=== PATIENT | female | born 1950 | race Caucasian/White ===

== ENCOUNTER 2019-05-16 00:51 | Day surgery (SDC) | payer MEDICARE, SELFPAY ==
[2019-05-09 15:50] VITALS: BMI 30.4
[2019-05-16] MEDS: LACTATED RINGERS 1,000 ML 150 ML IV CONT (07:35)
--- NOTE | 2019-05-16 07:57 | WPDANESEPPF ---
Anes - Initial Pre Proc Eval Procedure: Operation Date: 05/16/19 08:00 Proposed Procedures p Screening Colonoscopy - Rome Jonas MD Date/Time: 05/16/19 07:57 Surgeon: Rome Jonas MD Pre Op Diagnosis: Hx Colon Polyps Patient Data Age: 68 Gender: F Height: 5 ft 3 in Weight: 77.4 kg Allergies Allergy/AdvReac Type Severity Reaction Status Date / Time oxycodone Allergy Mild Rash Verified 05/16/19 07:11 Home Medications Medication Instructions Recorded Confirmed Type estradiol 0.5 mg PO DAILY 05/09/19 05/09/19 History hydrochlorothiazide 25 mg PO DAILY 05/09/19 05/16/19 History lisinopril 10 mg PO DAILY 05/09/19 05/09/19 History melatonin 3 mg PO HS PRN 05/09/19 05/09/19 History metoprolol succinate 50 mg PO DAILY 05/09/19 05/09/19 History Patient hx anesthesia problems: none Family hx anesthesia problems: none [facility] Past Medical History Medical History (Updated 05/16/19 @ 07:56 by Gilmar Richardson MD) Chronic lymphocytic leukemia dx 2010; now in remission Hypertension Anes - Eval Final PreProcedure Day of Procedure 05/16/19 07:57 Patient weight: normal Heart: regular rate and rhythm Lungs: clear to auscultation Airway: Mallampati scale class II Neurological: alert and oriented Last oral intake: >/= 8 hours ASA classification: II Emergent: no Anesthetic plan: proceed Anesthesia type and monitoring: general GIVS and standard monitoring Informed Consent: The patient's anesthetic plan and its attendant risks and benefits were discussed with the patient/family/POA. Questions were solicited and answers provided to the satisfaction of the patient/family/POA.
--- NOTE | 2019-05-16 08:15 | WPDGICN ---
Assessment and Plan Additional Plan This is a 68-year-old white female patient seen in evaluation at the request of Dr. Real. Patient presents for screening colonoscopy. Family history is significant her father, brother, maternal grandfather all of had colon cancer. Patient states that her current weight appetite are normal. She has had some diarrhea after medication given for skin disease. She denies any blood in her stools. Past medical history is significant for CLL. Hypertension. Current medications include estradiol, hydrochlorothiazide, lisinopril, melatonin, and metoprolol. \ She is allergic to oxycodone. Physical exam reveals her to be alert. Vital signs stable. HEENT exam unremarkable. She is anicteric. Lungs are clear to auscultation and percussion. Heart is without murmur or extra sounds. Abdominal exam bowel sounds are present soft nontender with no hepatosplenomegaly. Digital external rectal exam is normal. Impression 1. Family history of colon cancer. 2. Diarrhea. Appears related to recent medication. Plan is for colonoscopy now and at least every 5 years in the future. GI Consult Note Consult date/time: 05/16/19 08:15 HPI: Elena Tobar is a 68 year old female [facility] Past Medical History Medical History (Updated 05/16/19 @ 07:56 by Gilmar Richardson MD) Chronic lymphocytic leukemia dx 2010; now in remission Hypertension Meds Home Medications and Allergies Home Medications Medication Instructions Recorded Confirmed Type estradiol 0.5 mg PO DAILY 05/09/19 05/09/19 History hydrochlorothiazide 25 mg PO DAILY 05/09/19 05/16/19 History lisinopril 10 mg PO DAILY 05/09/19 05/09/19 History melatonin 3 mg PO HS PRN 05/09/19 05/09/19 History metoprolol succinate 50 mg PO DAILY 05/09/19 05/09/19 History Allergies Allergy/AdvReac Type Severity Reaction Status Date / Time oxycodone Allergy Mild Rash Verified 05/16/19 07:11
[2019-05-16 08:18] VITALS: BP 108/67; PULSE 78; RESP 16; O2SAT 98
[2019-05-16 08:28] VITALS: BP 108/65; PULSE 72; RESP 20; O2SAT 99
[2019-05-16 08:38] VITALS: BP 113/67; PULSE 64; RESP 13; O2SAT 99
== END 2019-05-16 08:54 | disposition home or self-care (01) ==
PROVIDERS: PCP Family Medicine Adolescent Medicine; Visit Provider Internal Medicine Gastroenterology
PROC: 0DJD8ZZ Inspection of Lower Intestinal Tract, Via Natural or Artificial Opening Endoscopic (ICD-10-PCS; CPT 45378; principal; 2019-05-16 08:00)
DX: Z12.11 Encounter for screening for malignant neoplasm of colon (principal); R19.7 Diarrhea, unspecified; D12.4 Benign neoplasm of descending colon; K64.8 Other hemorrhoids; I10 Essential (primary) hypertension; C91.11 Chronic lymphocytic leukemia of B-cell type in remission
CPT/HCPCS: 45385; 88305; J2704; J7120

== ENCOUNTER → 2019-09-30 09:00 | Outpatient (CLI) | payer MEDICARE, SELFPAY ==
--- NOTE | ~2019-09-30 | MR_ITS ---
EXAMINATION: MR hip RT wo con DATE: 09/30/2019 10:13 INDICATION: Bilateral primary osteoarthritis of the right hip presenting with right hip/groin pain TECHNIQUE: Magnetic resonance imaging (MRI) of the right hip was performed without intravenous contr ast. Sequences included full-field axial PD-weighted FS FSE and T1-weighted FSE, coronal of the pelvi s with PD-weighted FS FSE, small field of view of the right hip with axial PD-weighted FS FSE, sagit urszula PD-weighted FS FSE and coronal PD weighted FS FSE. Additional radial T1-weighted FGR oriented ort hogonal to the acetabular rim were obtained for evaluation of the labrum. COMPARISON: Radiographs dated 09/22/2019 FINDINGS: Bones/labrum/cartilage: Alignment is normal. No fracture, avascular necrosis or pathologic marrow replacing process. Mild de generation with amorphous increased intrasubstance signal at the anterosuperior right acetabular labr um. Small posterolateral right os acetabulum. More severe degenerative tearing suggested but not diag nostically evaluated along the anterolateral anterosuperior to posterior superior left acetabular lab rum on the larger field of view images of the pelvis. Mild right hip osteoarthritis with mild partial thickness cartilage loss with smooth chondral surface there is minimal subarticular edema along the posterior superior rim of the left acetabulum likely related to overlying chondromalacia severe disc height loss at L5-S1. Otherwise mild spondylosis of the visualized more cephalad lumbar spine. Fluid: Symmetric physiologic amount of fluid within both hip joints. Soft tissues: Normal and symmetric muscle bulk and signal in the pelvis and visualized proximal thighs. Mild bilate ral gluteus medius bursitis and mild tendinopathy without discrete tear of the distal gluteus medius tendons on both the left and right. Bilateral gluteus minimus tendons are normal. Mild tendinopathy w ithout discrete tear at the lesser trochanteric insertions of the bilateral iliopsoas tendons. Bilate ral minimal ischial bursitis with mild tendinopathy without discrete tear at the ischial tuberosity o rigins of the proximal hamstring tendons, right greater than left. Limited evaluation of visceral org ans of the pelvis is unremarkable. No pathologically enlarged pelvic/inguinal lymphadenopathy. IMPRESSION: 1. Mild right hip osteoarthritis with mild degeneration at the anterosuperior labrum. 2. More severe degenerative tearing of the left acetabular labrum suggested but not diagnostically ev aluated on the larger field of view images. 3. Relatively symmetric bilateral mild bilateral gluteus medius bursitis and mild gluteus medius tend inopathy without discrete tears. 4. Minimal bilateral ischial bursitis with mild tendinopathy without discrete tears at the ischial tu berosity origins of the bilateral proximal hamstring tendons, right greater than left. 5. Relatively symmetric mild tendinopathy without discrete tears at the lesser trochanteric insertion s of the bilateral iliopsoas tendons. 6. Lumbar spondylosis with severe disc height loss at L5-S1. Reviewed, dictated and finalized at location A. IMPRESSION: 1. Mild right hip osteoarthritis with mild degeneration at the anterosuperior l abrum. 2. More severe degenerative tearing of the left acetabular labrum suggested but not diagnostically evaluated on the larger field of view images. 3. Relatively symmetric bilateral mild bilateral gluteus medius bursitis and mi ld gluteus medius tendinopathy without discrete tears. 4. Minimal bilateral ischial bursitis with mild tendinopathy without discrete t ears at the ischial tuberosity origins of the bilateral proximal hamstring tend ons, right greater than left. 5. Relatively symmetric mild tendi
== END ==
PROVIDERS: PCP Family Medicine Adolescent Medicine; Visit Provider Nurse Practitioner Family
DX: M16.11 Unilateral primary osteoarthritis, right hip (principal); S73.191A Other sprain of right hip, initial encounter; M71.551 Other bursitis, not elsewhere classified, right hip; M47.816 Spondylosis without myelopathy or radiculopathy, lumbar region; R29.890 Loss of height
CPT/HCPCS: 73721

== ENCOUNTER 2019-11-19 15:12 | Inpatient (IN) | payer MEDICARE, SELFPAY ==
[2019-11-19] VITALS (10 sets, daily range): BP systolic 127–140; BP diastolic 62–78; PULSE 69–84; RESP 10–18; TEMP 36.1–36.6; O2SAT 97–100
--- NOTE | ~2019-11-19 | CT_ITS ---
EXAMINATION: CT brain wo con DATE: 11/19/2019 15:53 INDICATION: Syncope TECHNIQUE: Computed tomography (CT) of the head was performed without intravenous contrast. The mA wa s adjusted according to patient size. Iterative reconstruction technique was employed. Exam dose: 60 5.33 mGy-cm total exam DLP. COMPARISON: None FINDINGS: No intracranial mass lesion or hemorrhage or cerebrovascular accident, midline shift or mas s effect. No subdural or epidural hematoma. Normal ventricular size. Orbital contents are unremarkable. No fracture or bone destruction of the cranial vault. The mastoid air cells and included paranasal sinuses are unremarkable. IMPRESSION: No significant abnormality Reviewed, dictated and finalized at Location A. Reviewed, dictated and finalized at location A. IMPRESSION: No significant abnormality
--- NOTE | ~2019-11-19 | US_ITS ---
EXAMINATION: US carotid duplex BI DATE: 11/20/2019 09:16 INDICATION: Transient alteration of awareness TECHNIQUE: Grayscale, color Doppler, and pulsed Doppler images of the cervical carotid arteries were obtained. The degree of vessel stenosis is placed in one of the following categories: normal, <50%, 5 0-69%, >=70% but less than near-occlusion, near-occlusion, or total occlusion. Note that percent sten osis relative to normal distal artery lumen diameter is indirectly measured from velocity measurement s as described by Daniel, et al. Radiology 2003; 229:340-346. COMPARISON: None. FINDINGS: RIGHT: The right common carotid artery (CCA) peak systolic velocity (PSV) is 59 cm/s. The right internal car otid artery (ICA) PSV is 73 cm/s. The right ICA end-diastolic velocity (EDV) is 22 cm/s. The right IC A/CCA PSV ratio is 0.8. Grayscale and color Doppler images yield an estimate of less than 50% diamete r reduction from plaque in the ICA. The external carotid artery (ECA) PSV is 96 cm/s. There is antegr david flow in the right vertebral artery. LEFT: The left CCA PSV is 75 cm/s. The left ICA PSV is 122 cm/s. The left ICA EDV is 31 cm/s. The left ICA/ CCA PSV ratio is 1.6. Grayscale and color Doppler images yield an estimate of less than 50% diameter reduction from plaque in the ICA. The ECA PSV is 86 cm/s. There is antegrade flow in the left vertebr al artery. IMPRESSION: 1. <50% stenosis in the right internal carotid artery. 2. <50% stenosis in the left internal carotid artery. Reviewed, dictated and finalized at location A.
--- NOTE | ~2019-11-19 | CT_ITS ---
EXAMINATION: CT abdomen pelvis wo con DATE: 11/21/2019 12:15 INDICATION: Lower abdominal cramping, diarrhea TECHNIQUE: Computed tomography (CT) of the abdomen and pelvis was performed without intravenous contr ast. Automated exposure control and iterative reconstruction technique were employed. Exam dose: 584 .37 mGy-cm total exam DLP. COMPARISON: None. FINDINGS: There is mild discoid atelectasis or scarring in the lingula and both lower lobes, right lo wer lobe greater than left. Normal heart size. No pericardial or pleural effusion. The gallbladder is contracted. No hepatic, splenic, pancreatic, and adrenal space-occupying mass lesi on is evident. No bile duct or pancreatic duct dilatation. 2.5 cm upper pole left renal cyst. Probable exophytic approximately 12 mm lower pole right renal cyst . No other renal space occupying mass lesion is evident. No urinary tract calculus or hydroureteronep hrosis. The urinary bladder is unremarkable. Normal caliber of the abdominal aorta, with atherosclerotic calcification of the aorta and iliac bandar jerome. No intraperitoneal or retroperitoneal or pelvic mass lesion or adenopathy or ascites. Normal appendix. No bowel obstruction, bowel wall thickening, pneumatosis or intraperitoneal free air . Diverticulosis of the sigmoid colon; no CT evidence of diverticulitis. Grade 1 anterolisthesis at L3-4 due to degenerative change at the apophyseal joints. Severe degenerative disc disease at the L5-S1 interspace. No suspicious osteolytic or osteoblastic lesions are noted. IMPRESSION: Renal cysts Normal appendix Diverticulosis of the colon Reviewed, dictated and finalized at Location [facility]. Reviewed, dictated and finalized at location A.
--- NOTE | 2019-11-19 15:17 | ECG_ITS ---
Measurements Intervals [place] Rate: 72 P: 22 MI: 197 QRS: -17 QRSD: 97 T: 22 QT: 401 QTc: 440 Interpretive Statements SINUS RHYTHM ANTERIOR INFARCT, AGE INDETERMINATE INFERIOR INFARCT, AGE INDETERMINATE ABNORMAL ECG Electronically Signed On 11-20-2019 7:47:04 CDT by Pablo Ashford D.O.
[2019-11-19] MEDS: SODIUM CHLORIDE 0.9% IV 1,000 ML 150 ML IV CONT (15:36)
[2019-11-19 15:55] LABS: Basophils Absolute Auto 0.1 K/mm3 (0.0-0.1); Basophils Percent Auto 0.1 % (0.2-1.2); Eosinophils Absolute Auto 0.2 K/mm3 (0-0.3); Eosinophils Percent Auto 0.3 % (0-4.4); Hematocrit 29.3 % (37.0-47.0); Hemoglobin 9.3 g/dL (12.0-15.0); Immature Granulocyte Absolute 0.09 K/mm3 (0.00-0.031); Immature Granulocyte Percent A 0.2 % (0-0.5); Immature Platelet Fraction Pct 3.9 % (0.9-11.2); Lymphocytes Absolute Auto 41.15 K/mm3 (0.9-3.2); Lymphocytes Percent Auto 87.8 % (18.3-44.2); Mean Corpuscular HGB Conc 31.7 g/dl (32-36); Mean Corpuscular Hemoglobin 29.2 pg (26-34); Mean Corpuscular Volume 92.1 fl (80-100); Mean Platelet Volume 10.6 fl (7.4-10.4); Monocytes Absolute Auto 0.3 K/mm3 (0.1-0.6); Monocytes Percent Auto 0.7 % (2.6-8.5); Neutrophils Absolute Auto 5.1 K/mm3 (1.3-6.7); Neutrophils Percent Auto 10.9 % (45.5-73.1); Platelet Count Result 120 k/mm3 (150-375); Red Blood Count 3.18 M/mm3 (4.2-5.4); Red Cell Distribution Width 15.4 % (11.5-14.5); White Blood Count 46.9 K/mm3 (4.5-10.0)
[2019-11-19 16:17] LABS: Albumin Level 2.3 g/dL (3.5-5.1); Alkaline Phosphatase 42 U/L (38-126); Anion Gap 5 mmol/L (8-16); Aspartate Amino Transferase 26 U/L (14-36); Bilirubin,Total 0.2 mg/dL (0.2-1.3); Blood Urea Nitrogen 12 mg/dL (7-17); Calcium 5.7 mg/dL (8.4-10.2); Carbon Dioxide 20 mmol/L (22-30); Chloride 112 mmol/L (98-107); Estimated CRCL calculation 89 ml/min; Estimated Glomerular Filt Rate > 60; Glucose 74 mg/dL (65-105); Potassium 2.7 mmol/L (3.4-5.0); Sodium 137 mmol/L (137-145)
[2019-11-19 16:24] LABS: Troponin I < 0.012 ng/mL (0.000-0.034)
[2019-11-19 16:29] LABS: Add Urine Microscopic? YES; Appearance Urine Clear (Clear); Bilirubin Urine Negative (Negative); Blood Urine Negative (Negative); Color Urine Yellow (Yellow); Glucose Urine UA Negative (Negative); Ketones Urine Negative (Negative); Leukocyte Esterase Ur 1+ LEU/UL (Negative); Mucus Urine Rare /lpf; Nitrate Urine Negative (Negative); Protein Urine Negative (Negative); RBC Urine 0-2 /hpf (0-2); Specific Grav Ur 1.015 (1.001-1.035); Squamous Epithelial Cell Urine Rare /hpf (Few); Urobilinogen Urine Negative mg/dL (<2.0); WBC Urine 0-3 /hpf
[2019-11-19 16:32] LABS: Alanine Aminotransferase 20 U/L (4-35)
[2019-11-19 16:35] LABS: Smudge Cells MANY
--- NOTE | 2019-11-19 17:28 | ED.SYNCOPE ---
HPI - Syncope General Chief Complaint: Syncope Stated Complaint: syncopal Source: patient and family Mode of arrival: EMS Limitations: no limitations History of Present Illness HPI narrative: 68-year-old with a history of hypertension, CLL presently on Flagyl for C. difficile here with complaints of syncopal episode x2 since this afternoon. Patient states that she was at a birthday green party of her grandson, was not feeling well passed out for approximately 3 minutes and on her way home had another episode she denies any chest pain, shortness of breath complains of lower abdominal cramping. She denies any chest pain or palpitation. states that they were less than 10 minutes outside. complaint: almost passed out Prodromal symptoms: lightheaded and nausea/vomiting Witnessed: Yes - by Other () Context: at rest Injuries sustained associated with event: none Current symptoms: back to baseline Related Data Home Medications Medication Instructions Recorded Confirmed estradiol 0.5 mg PO DAILY 05/09/19 09/22/19 hydrochlorothiazide 25 mg PO DAILY 05/09/19 09/22/19 lisinopril 10 mg PO DAILY 05/09/19 09/22/19 melatonin 3 mg PO HS PRN 05/09/19 09/22/19 metoprolol succinate 50 mg PO DAILY 05/09/19 09/22/19 Allergies Allergy/AdvReac Type Severity Reaction Status Date / Time oxycodone Allergy Mild Rash Verified 11/19/19 15:18 Review of Systems Review of Systems: All systems reviewed & are unremarkable except as noted in HPI and below Constitutional: Constitutional: Reports no additional constitutional complaints Eyes: Eyes: Reports no additional eye complaints ENT: Reports system reviewed and no additional complaints, except as documented Cardiovascular: Cardiovascular: Reports no additional cardiovascular complaints Respiratory: Respiratory: Reports no additional respiratory complaints Gastrointestinal: Gastrointestinal: Reports abdominal pain and Reports diarrhea Musculoskeletal: Musculoskeletal: Reports no additional musculoskeletal complaints Neurologic: Reports system reviewed and no additional complaints, except as documented Endocrine: Endocrine: Reports no additional endocrine complaints [facility] Past Medical History Medical History Chronic lymphocytic leukemia dx 2010; now in remission Hip pain Hypertension Labral tear of hip joint Trochanteric bursitis, right hip Surgical History Surgical History History of repair of right rotator cuff Family History Family History Unknown Arthritis Cardiovascular disease Social History Social History Smoking status: Never smoker Alcohol intake: current Drinks per week: 2 Exam Narrative: Exam Narrative: GENERAL: Well-appearing, well-nourished, and in no acute distress. HEAD: Normocephalic, atraumatic. EYES: PERRLA and EOMI. ENT: Nares clear, Mucous membranes moist. NECK: Supple. CHEST: Clear to auscultation. No respiratory distress. HEART: Regular rate and rhythm. No murmur heard. Normal peripheral pulses. ABDOMEN: Soft, mild tenderness in the llq, nondistended, normal active bowel sounds. EXTREMITIES: Normal range of motion. No edema. SKIN: Warm, dry, no rash. NEURO: No focal deficits. Alert and oriented x3. PSYCH: Normal mood and affect. Course Course Emergency Course: Patient remained asymptomatic here in the ER. I discussed lab work with the and the patient was started on IV potassium. Vital Signs Vital signs: Vital Signs Temperature 36.6 C 11/19/19 15:09 Pulse Rate 72 11/19/19 15:09 Respiratory Rate 17 11/19/19 15:09 Pulse Oximetry 98 11/19/19 15:09 Temperature 36.6 C 11/19/19 15:09 Pulse Rate 69 11/19/19 17:33 Respiratory Rate 12 11/19/19 17:33 Blood Pressure 132/73 11/19/19
[2019-11-19] MEDS: MORPHINE SULFATE 2 MG/ML INJ IV PUSH (17:29)
[2019-11-19 18:26] LABS: INR 1.5; Prothrombin Time 17.6 Seconds (11.1-14.7)
--- NOTE | 2019-11-19 19:30 | PM.IMHP ---
H&P: HPI History of Present Illness Date/Time: 11/19/19 19:30 Chief complaint: syncope Narrative: Elena Tobar is a 68-year-old female with chronic lymphocytic leukemia, hypertension, and hyperlipidemia who presented to the emergency department earlier this evening for evaluation after two syncopal episodes. 10 days ago she developed foul smelling diarrhea, at least 3 times per day, which has persisted since the outset. Her mother resides at a local senior care facility and is currently being treated for C diff and the patient was empirically started on Flagyl for such 6 days ago on Thursday as she sees her mother frequently. Today she felt well enough to go to her son's house, as they were having and outdoor birthday alliance party for her granddaughter. Not long prior to arrival she began having pretty severe lower abdominal cramps and began to feel very warm, nauseated, and lightheaded. She then lost consciousness for a few seconds before coming to, followed by an episode of emesis. She was profusely diaphoretic at that time, and had the urge to have a bowel movement upon waking. She told her that they probably need to get home quickly, and on their way to the truck she had another syncopal episode , but did not fall or sustain injuries as family members were nearby to catch her. She denies fever, headache, sinus congestion, rhinorrhea, otalgia, odynophagia, chest pain, pleuritic pain, palpitations, cough, shortness of breath, recent travel, sick contacts, hematemesis, melena, hematochezia, dysuria, and hematuria. Of note, the patient's labs drawn in the emergency department seemed a bit off (hypocalcemia, hypoalbuminemia, low total protein, prolonged coags) and thus I had them redrawn. It does look like they indeed were drawn above the IV the site and were erroneous. It is noted that she received K rider in the emergency department, and a repeat potassium level was 5.0. We will monitor her on telemetry overnight and repeat potassium level in a.m.. Review of Systems Review of Systems: Narrative: Twelve systems were reviewed with pertinent positives and negatives as per HPI. Weight has remained stable. No night sweats. She has chronic cervical lymphadenopathy due to her CLL, and has not noticed a change in size or distribution. She is followed by a senior compliance analyst at [facility], Dr. Gonzalez, but she has not seen him for approximately 1 year. She has a history of anemia prior to her hysterectomy, but to her knowledge her hemoglobin has always been within normal limits. she has been told that she has mild splenomegaly and may have mild thrombocytopenia at baseline. She denies abdominal and epigastric pain. She rarely gets heartburn for which she will take Tums. No lower extremity edema, recent travel, or history of venous thromboembolism. She has chronic pain in her right shoulder, and I believe is to have rotator cuff surgery yet again in the future. She has also recently been having right hip discomfort and is seeing an card services specialist. Except as documented, all other systems were reviewed and are negative. [facility] Past Medical History Medical History (Updated 11/19/19 @ 23:27 by Nyla Pizano PA-C) Chronic lymphocytic leukemia Diagnosed in 2010. She is followed by Dr. Rojas at [facility]. Hypertension Surgical History Surgical History (Updated 11/19/19 @ 19:27 by Nyla Pizano PA-C) History of appendectomy History of colonoscopy (~05/17/19) Per Dr. Jonas, with findings of internal hemorrhoids and a descending colon polyp (tubular adenoma). History of fusion of cervical spine History of hysterectomy History of repair of right rotator cuff History of tonsillectomy Family History Family History Unknown Arthritis Cardiovascular disease Social History Social History (Updated 11/19/19 @ 20:46 by Nyla Pizano PA-C) Social History: Surrogate deci
--- NOTE | 2019-11-19 20:48 | ADMGEN ---
This patient, Elena Tobar, was admitted to Medical Room 245-01 @ 1950 on 11/19/2019. Patient/family oriented to hospital policies and general routines including ID bracelet, bed and alarms, visiting hours, pain management, procedures, bathroom and other care routines, personal items, smoking policy, room service/diet, and visiting hours. Valuables list has been completed. Information on how to activate the Rapid Response Team has been discussed. Patient/Family are encouraged to report perceived risks to care and to ask questions if they do not understand what they are told or what they should do.
[2019-11-19] MEDS: LACTATED RINGERS 1,000 ML 125 ML IV CONT (21:37)
[2019-11-19 22:22] LABS: Basophils Absolute Auto 0.2 K/mm3 (0.0-0.1); Basophils Percent Auto 0.3 % (0.2-1.2); Eosinophils Absolute Auto 0.1 K/mm3 (0-0.3); Eosinophils Percent Auto 0.1 % (0-4.4); Hematocrit 34.8 % (37.0-47.0); Hemoglobin 11.3 g/dL (12.0-15.0); Immature Granulocyte Absolute 0.13 K/mm3 (0.00-0.031); Immature Granulocyte Percent A 0.2 % (0-0.5); Mean Corpuscular HGB Conc 32.5 g/dl (32-36); Mean Corpuscular Hemoglobin 29.6 pg (26-34); Mean Corpuscular Volume 91.1 fl (80-100); Mean Platelet Volume 10.6 fl (7.4-10.4); Monocytes Absolute Auto 0.4 K/mm3 (0.1-0.6); Monocytes Percent Auto 0.8 % (2.6-8.5); Neutrophils Percent Auto 14.6 % (45.5-73.1); Platelet Count Result 141 k/mm3 (150-375); Red Blood Count 3.82 M/mm3 (4.2-5.4); Red Cell Distribution Width 15.5 % (11.5-14.5)
[2019-11-19 22:34] LABS: INR 1.1; Partial Thromboplastin Time 27.6 SECONDS (22.3-36.8)
[2019-11-19 22:35] LABS: Anion Gap 4 mmol/L (8-16); Blood Urea Nitrogen 12 mg/dL (7-17); Calcium 8.3 mg/dL (8.4-10.2); Carbon Dioxide 25 mmol/L (22-30); Chloride 106 mmol/L (98-107); Estimated CRCL calculation 66 ml/min; Estimated Glomerular Filt Rate > 60; Glucose 97 mg/dL (65-105); Magnesium 1.8 mg/dL (1.6-2.3); Sodium 135 mmol/L (137-145)
[2019-11-19 22:40] LABS: White Blood Count 54.9 K/mm3 (4.5-10.0)
[2019-11-19] MEDS: FIDAXOMICIN 200 MG TABLET PO (23:20)
[2019-11-19] MEDS: MORPHINE SULFATE 4 MG/ML INJ 2 MG IV PUSH (23:22)
[2019-11-19 23:36] LABS: Alanine Aminotransferase 28 U/L (4-35); Albumin Level 3.4 g/dL (3.5-5.1); Alkaline Phosphatase 63 U/L (38-126); Aspartate Amino Transferase 35 U/L (14-36); Bilirubin,Total 0.6 mg/dL (0.2-1.3)
[2019-11-20] VITALS (12 sets, daily range): BP systolic 113–132; BP diastolic 60–65; PULSE 61–78; RESP 15–18; TEMP 35.7–36.7; O2SAT 92–99
[2019-11-20] MEDS: LACTATED RINGERS 1,000 ML 125 ML IV CONT (04:56)
[2019-11-20 05:40] LABS: Basophils Absolute Auto 0.1 K/mm3 (0.0-0.1); Basophils Percent Auto 0.1 % (0.2-1.2); Eosinophils Absolute Auto 0.2 K/mm3 (0-0.3); Eosinophils Percent Auto 0.4 % (0-4.4); Hemoglobin 11.3 g/dL (12.0-15.0); Immature Granulocyte Absolute 0.07 K/mm3 (0.00-0.031); Immature Granulocyte Percent A 0.2 % (0-0.5); Lymphocytes Absolute Auto 39.93 K/mm3 (0.9-3.2); Mean Corpuscular HGB Conc 32.3 g/dl (32-36); Mean Corpuscular Volume 89.7 fl (80-100); Mean Platelet Volume 10.6 fl (7.4-10.4); Monocytes Absolute Auto 0.4 K/mm3 (0.1-0.6); Monocytes Percent Auto 0.8 % (2.6-8.5); Neutrophils Absolute Auto 4.8 K/mm3 (1.3-6.7); Neutrophils Percent Auto 10.5 % (45.5-73.1); Platelet Count Result 124 k/mm3 (150-375); Red Cell Distribution Width 15.4 % (11.5-14.5); White Blood Count 45.4 K/mm3 (4.5-10.0)
[2019-11-20 05:54] LABS: Anion Gap 4 mmol/L (8-16); Blood Urea Nitrogen 11 mg/dL (7-17); Calcium 8.5 mg/dL (8.4-10.2); Carbon Dioxide 25 mmol/L (22-30); Chloride 106 mmol/L (98-107); Estimated CRCL calculation 66 ml/min; Estimated Glomerular Filt Rate > 60; Glucose 89 mg/dL (65-105); Magnesium 2.1 mg/dL (1.6-2.3); Sodium 135 mmol/L (137-145)
[2019-11-20 07:31] LABS: Platelet Estimate Decreased (Adequate)
[2019-11-20 07:33] LABS: Smudge Cells PRESENT
[2019-11-20] MEDS: METOPROLOL SUCCINATE EXT REL 50 MG TABCR PO (09:34)
[2019-11-20] MEDS: estradioL 0.5 MG TABLET PO (09:34)
[2019-11-20] MEDS: lisinopriL 10 MG TABLET PO (09:34)
[2019-11-20] MEDS: FIDAXOMICIN 200 MG TABLET PO ×2 (10:32→20:20)
--- NOTE | 2019-11-20 12:41 | PM.IMPN ---
Progress Note: A&P Assessment and Plan (1) Syncope: Qualifiers: Syncope type: unspecified Qualified Code(s): R55 - Syncope and collapse Code(s): R55 - Syncope and collapse Status: Acute Assessment and Plan: Likely vasovagal syncope by history, given recent diarrhea and showing some dehydration on labs. Telemetry shows normal sinus rhythm with a heart rate of 94 beats per minute with no arrhythmia noted or abnormality. Echocardiogram and carotid Dopplers are currently pending She is feeling better after IV fluid hydration today and will discontinue fluids at this time. Continue monitoring patient's symptoms and finishing cardiac workup (2) Diarrhea: Code(s): R19.7 - Diarrhea, unspecified Status: Acute Assessment and Plan: She was exposed to C diff in began having diarrhea over a week ago. Despite taking Flagyl for the past 6 days, she continues to have diarrhea and abdominal pain. Change Flagyl to Dificid, pending C diff testing. She is still having some loose stools today without much improvement. Continue monitoring diarrhea. If C diff testing is negative will consider a CT abdomen pelvis looking for other cause of lower abdominal pain and diarrhea. (3) Hypokalemia: Code(s): E87.6 - Hypokalemia Status: Acute Assessment and Plan: She received a 40 mEq K rider in the emergency department for a potassium of 2.7, however that was likely an erroneous level as detailed in HPI. Repeat potassium level was 5.0. Potassium this morning was normal at 4.0 Will recheck in the morning. (4) Chronic lymphocytic leukemia: Code(s): C91.10 - Chronic lymphocytic leukemia of B-cell type not having achieved remission Status: Acute Assessment and Plan: Patient notes stable lymphadenopathy leukocytosis. To her knowledge she has no history of anemia and currently with mild thrombocytopenia. Continue monitoring and she will need to follow-up with her study abroad coordinator/oncologist upon discharge (5) Hypertension: Code(s): I10 - Essential (primary) hypertension Status: Acute Assessment and Plan: Blood pressures reviewed and they are well controlled. At this time will hold hydrochlorothiazide given hypokalemia and some dehydration. Time Spent With Patient Time with patient: 25 - 35 minutes Subjective Date/time seen: 11/20/19 12:41 Interval history: Data summary 11/20/2019: Patient states she is feeling better today after IV fluids. She is still having some loose stools and lower abdominal cramping. She denies any more episodes of lightheadedness, dizziness, near-syncope or syncope since she has been here. She denies any associated symptoms of chest pain, shortness of breath, palpitations with her episodes of syncope. She is otherwise eating and drinking okay. Denies any fevers, chills, cough, leg swelling, calf pain or any other symptoms at this time. Review of Systems Review of Systems: All systems reviewed & are unremarkable except as noted in HPI and below Exam Narrative: Exam Narrative: General: 68-year-old woman walking from the bathroom back into bed. Appears comfortable. In no acute distress. Skin: No jaundice or cyanosis. Good skin turgor. Neck: Full range of motion. Supple. Respiratory: Lungs are clear to auscultation bilaterally. No bony chest wall tenderness. Cardiovascular: The heart has a regular rate and rhythm without murmur. Lower extremities: No lower extremity edema. Distal pulses are easily palpated. No calf tenderness to palpation. Gastrointestinal: Slight tenderness to lower right and left quadrants with palpation. The abdomen is other
[2019-11-20] MEDS: IBUPROFEN 600 MG TABLET PO (13:14)
[2019-11-20] MEDS: LACTATED RINGERS 1,000 ML 100 ML IV CONT (13:14)
[2019-11-21] VITALS (10 sets, daily range): BP systolic 115–131; BP diastolic 60–75; PULSE 63–81; RESP 14–16; TEMP 36.5–37.1; O2SAT 98–99
[2019-11-21 05:51] LABS: Hematocrit 35.8 % (37.0-47.0); Hemoglobin 11.2 g/dL (12.0-15.0); Mean Corpuscular HGB Conc 31.3 g/dl (32-36); Mean Corpuscular Volume 92.7 fl (80-100); Mean Platelet Volume 10.8 fl (7.4-10.4); Platelet Count Result 128 k/mm3 (150-375); Red Blood Count 3.86 M/mm3 (4.2-5.4); Red Cell Distribution Width 15.9 % (11.5-14.5)
[2019-11-21 06:11] LABS: White Blood Count 51.6 K/mm3 (4.5-10.0)
[2019-11-21 06:15] LABS: Anion Gap 4 mmol/L (8-16); Blood Urea Nitrogen 15 mg/dL (7-17); Calcium 8.4 mg/dL (8.4-10.2); Carbon Dioxide 25 mmol/L (22-30); Chloride 107 mmol/L (98-107); Estimated CRCL calculation 66 ml/min; Estimated Glomerular Filt Rate > 60; Glucose 92 mg/dL (65-105); Potassium 4.2 mmol/L (3.4-5.0); Sodium 136 mmol/L (137-145)
--- NOTE | 2019-11-21 08:53 | WPDGICN ---
Assessment and Plan Assessment and plan (1) Diarrhea: Code(s): R19.7 - Diarrhea, unspecified Status: Acute Assessment and Plan: Patient with diarrhea for approximately 10 days. Suspect this is infectious diarrhea given her history. She typically does not have diarrhea. Endoscopic findings in May were noted to be unremarkable. Plan is for stool cultures a broad-spectrum cultures of at all possible. These may be limited because she has been on antibiotics. Would suggest empiric trial of broad-spectrum antibiotics perhaps Cipro would be prudent. C difficile toxin is reported to be negative. I can find no other culture reports are pending at this time. We will allow patient to try Imodium for control of her diarrhea. Encourage dietary intake. IV fluids have been discontinued this morning. Would increase ambulation as possible. (2) Chronic lymphocytic leukemia: Code(s): C91.10 - Chronic lymphocytic leukemia of B-cell type not having achieved remission Status: Acute GI Consult Note Consult date/time: 11/21/19 08:53 HPI: Elena Tobar is a 68 year old female I am asked to see for diarrhea and abdominal pain. Patient in usual state of health has an underlying history of CLL. Approximately 10 days ago began to have diarrhea stools. She empirically began Flagyl 1 week ago because her mother has C diff. 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 She has not seen her mother for since the panned epic began. Patient states diarrhea began. On Thursday 2 days ago she became what somewhat lightheaded and nearly passed out. She states stools are soft she has about 3 a day. Sometimes with significant urgency and poor control. No bleeding has been noted. She has concomitant abdominal cramping. Patient denies any recent travel. No one else in the family has been ill. She hasd eaten no unusual food. Colonoscopy in May for screening was essentially unremarkable. Since admission stool for C difficile toxin has been documented to be negative. Patient reports she has had no bowel movements since yesterday and feels quite improved today after IV fluid rehydration. At the time of admission had electrolyte imbalance was felt to be dehydrated. Review of Systems Review of Systems: All systems reviewed & are unremarkable except as noted in HPI and below PMFSH Past Medical History Medical History Chronic lymphocytic leukemia Diagnosed in 2010. She is followed by Dr. Rojas at [facility]. Hypertension Surgical History Surgical History History of appendectomy History of colonoscopy (~05/17/19) Per Dr. Jonas, with findings of internal hemorrhoids and a descending colon polyp (tubular adenoma). History of fusion of cervical spine History of hysterectomy History of repair of right rotator cuff History of tonsillectomy Family History Family History Unknown Arthritis Cardiovascular disease Social History Social History Social History: Surrogate decision maker: Marc Tobar, . Code status: Full code. Smoking status: Never smoker Alcohol intake: current Drinks per week: 1 Substance use: never Substance use type: does not use Additional living arrangements comments: Lives in [place] with her . Additional occupation/education comments: Retired from working at a dental office. Spiritual care concerns: No Meds Home Medications and Allergies Home Medications Medication Instructions Recorded Confirmed Type estradiol 0.5 mg PO DAILY 05/09/19 11/19/19 History hydrochlorothiazide 25 mg PO DAILY 05/09/19 11/19/19 History lisinopril 10 mg PO DAILY 05/09/19 11/19/19 History metopro
[2019-11-21] MEDS: METOPROLOL SUCCINATE EXT REL 50 MG TABCR PO (09:04)
[2019-11-21] MEDS: estradioL 0.5 MG TABLET PO (09:05)
[2019-11-21] MEDS: lisinopriL 10 MG TABLET PO (09:05)
--- NOTE | 2019-11-21 13:15 | PM.IMPN ---
Progress Note: A&P Assessment and Plan (1) Syncope: Qualifiers: Syncope type: unspecified Qualified Code(s): R55 - Syncope and collapse Code(s): R55 - Syncope and collapse Status: Acute Assessment and Plan: Likely vasovagal syncope by history, given recent diarrhea and showing some dehydration on labs. Telemetry shows normal sinus rhythm with a heart rate of 76 beats per minute, and there was 1 alarms which showed a pause of 2.09 seconds with no arrhythmia noted or abnormality. I informed the patient that if she has pauses greater than 3 seconds this could cause syncopal episodes. I am still under the impression that her syncope was secondary to underlying vasovagal response. Carotid Doppler shows less than 50% stenosis bilaterally. Echocardiogram still pending cardiology interpretation Continue monitoring patient's symptoms and finishing cardiac workup (2) Diarrhea: Code(s): R19.7 - Diarrhea, unspecified Status: Acute Assessment and Plan: She was exposed to C diff and began having diarrhea over a week ago. Despite taking Flagyl for the past 6 days, she continues to have diarrhea and abdominal pain. Change Flagyl to Dificid on arrival but her C diff stool culture was negative. She is still having some loose stools today in states there is some improvement since yesterday afternoon. I consulted Dr. tevin GILL who would like further stool culture testing to be completed because it could be infectious in origin. He also recommended starting ciprofloxacin but since she is improving today he told me over the phone we can hold off on this right now. She does not have a CT scan upon arrival and she is still having some abdominal discomfort and diarrhea so a CT abdomen pelvis was ordered and pending radiologist's interpretation Will continue monitoring her symptoms, pending stool cultures. Continue monitoring diarrhea. (3) Hypokalemia: Code(s): E87.6 - Hypokalemia Status: Acute Assessment and Plan: She received a 40 mEq K rider in the emergency department for a potassium of 2.7, however that was likely an erroneous level as detailed in HPI. Repeat potassium level was 5.0. Potassium this morning was normal at 4.2, stable. Will recheck in the morning. (4) Chronic lymphocytic leukemia: Code(s): C91.10 - Chronic lymphocytic leukemia of B-cell type not having achieved remission Status: Acute Assessment and Plan: Patient notes stable lymphadenopathy leukocytosis. To her knowledge she has no history of anemia and currently with mild thrombocytopenia. Continue monitoring and she will need to follow-up with her latin teacher/oncologist upon discharge (5) Hypertension: Code(s): I10 - Essential (primary) hypertension Status: Acute Assessment and Plan: Blood pressures reviewed and they are well controlled. At this time will hold hydrochlorothiazide given hypokalemia and some dehydration. Time Spent With Patient Time with patient: 25 - 35 minutes Subjective Date/time seen: 11/21/19 13:15 Interval history: Data summary 11/21/2019: Patient states she is feeling better today and she states that her diarrhea has improved. It is loose in nature but she has not had a bowel movement yet this morning, and yesterday afternoon she only had small amounts with the same consistency. She still having some lower abdominal cramping and discomfort. She denies any more episodes of lightheadedness, dizziness, palpitations, near-syncope or syncope since she has been here. She denies any associated symptoms of chest pain, shortness of breath, palpitations with her episodes of syncope.
[2019-11-21] MEDS: IBUPROFEN 600 MG TABLET PO (20:30)
--- NOTE | 2019-11-21 23:29 | ECHO_ITS ---
Patient Info Name: Elena Tobar Age: 68 years : 1950 Gender: Female Ht: 63 in Wt: 174 lbs BSA: 1.90 m2 HR: 70 bpm BP: 121 / 75 mmHg Heart Rhythm: Sinus Rhythm Technical Quality: Good Exam Date: 11/21/2019 11:48 AM Exam Location: [facility] Patient Status: Inpatient Admit Date: 11/19/2019 Staff Ordering Physician: Nyla Pizano PA-C Hub Cutter: Bethel Eldridge RDCS Attending Provider: Mariely Lebron PA-C Referring Physician: Harinder PATRICK; Exam Type: CA echo doppler color flow Study Info Indications R55 - Syncope and collapse Complete two-dimensional, color flow and Doppler transthoracic echocardiogram is performed. History/Risk Factors Syncope. Summary 1. Complete two-dimensional, color flow and Doppler transthoracic echocardiogram is performed. 2. Left ventricular chamber dimension is normal. 3. Left ventricular systolic function is normal, estimated at 65-70%. 4. There is mildly increased left ventricular wall thickness. 5. Left ventricular septal wall motion is normal. 6. The left ventricular diastolic function is grade I diastolic dysfunction. 7. Left atrial chamber dimension is mildly enlarged. 8. There is mild tricuspid valve regurgitation. 9. There is mild pulmonic regurgitation. Left Ventricle Left ventricular chamber dimension is normal. Left ventricular systolic function is normal, estimated at 65-70%. There is mildly increased left ventricular wall thickness. Left ventricular septal wall motion is normal. The left ventricular diastolic function is grade I diastolic dysfunction. Right Ventricle Right ventricular chamber dimension is normal. Right ventricular systolic function is normal. Left Atria Left atrial chamber dimension is mildly enlarged. Right Atria Right atrial chamber dimension is normal. Atrial Septum Intact interatrial septum visualized by color flow imaging. Aortic Valve The aortic valve is trileaflet. There is mild aortic valve sclerosis. There is no aortic valve stenosis. There is trace aortic valve regurgitation. Pulmonic Valve The pulmonic valve is normal. There is no pulmonic valve stenosis. There is mild pulmonic regurgitation. Mitral Valve The mitral valve has normal leaflets. There is no mitral valve stenosis. There is trace mitral valve regurgitation. Tricuspid Valve The tricuspid valve leaflets are normal. There is no significant tricuspid valve stenosis. There is mild tricuspid valve regurgitation. No pulmonary hypertension, estimated pulmonary arterial systolic pressure is 34 mmHg. Pericardium/Pleural The pericardium appears normal. There is no pericardial effusion. Inferior Vena Cava Normal inferior vena cava with >50% collapse upon inspiration consistent with normal right atrial pressure, 10 mmHg. Aorta The aortic root size at the sinus of Valsalva is normal. The prox ascending aorta size is normal. Left Ventricular Outflow Tract Name Value Normal LVOT 2D LVOT Diameter 1.9 cm LVOT Doppler LVOT Peak Gradient 4 mmHg LVOT Mean Gr
[2019-11-22] VITALS: BP 132/74; PULSE 59; PULSE 63; RESP 20; TEMP 36.6; O2SAT 99
[2019-11-22 04:00] VITALS: BP 118/69; PULSE 63; PULSE 65; RESP 18; TEMP 36.4; O2SAT 98
[2019-11-22 05:36] LABS: Hematocrit 34.2 % (37.0-47.0); Hemoglobin 10.9 g/dL (12.0-15.0); Immature Platelet Fraction Pct 4.1 % (0.9-11.2); Mean Corpuscular HGB Conc 31.9 g/dl (32-36); Mean Corpuscular Hemoglobin 29.5 pg (26-34); Mean Corpuscular Volume 92.4 fl (80-100); Mean Platelet Volume 10.8 fl (7.4-10.4); Platelet Count Result 123 k/mm3 (150-375); Red Cell Distribution Width 15.5 % (11.5-14.5); White Blood Count 46.7 K/mm3 (4.5-10.0)
[2019-11-22 05:39] LABS: Anion Gap 3 mmol/L (8-16); Blood Urea Nitrogen 14 mg/dL (7-17); Calcium 8.4 mg/dL (8.4-10.2); Carbon Dioxide 26 mmol/L (22-30); Chloride 106 mmol/L (98-107); Estimated CRCL calculation 58 ml/min; Estimated Glomerular Filt Rate > 60; Glucose 90 mg/dL (65-105); Potassium 3.8 mmol/L (3.4-5.0); Sodium 135 mmol/L (137-145)
[2019-11-22 08:00] VITALS: PULSE 77
--- NOTE | 2019-11-22 08:21 | WPDGIPROGNO ---
Progress Note: A&P Additional Plan Patient comfortable this morning. Notes no additional diarrhea stools period is been a day and a half since any stools at all. She does report vague abdominal burning discomfort poorly described. She states this could be hunger pains. Physical exam reveals her to be alert. Vital signs stable. HEENT exam unremarkable. She is anicteric. Lungs are clear. Heart without murmur. Abdomen soft nontender with no organomegaly. Impression 1. Resolved diarrhea. Likely infectious in nature. She has received antibiotics for at least 1 week. I would defer antibiotics unless diarrhea returns. At which time stool cultures in an empiric trial of Cipro may be prudent. I would be happy see patient electively in the office should this happen. Hopefully we can discharge the patient today. High-fiber diet advised. 2. CLL. Elevated WBC noted. Continued follow-up with oncology / hematology advised. Subjective Date/time seen: 11/22/19 08:22 Objective Data Vital Signs Vital Signs: Vital Signs - 24 hr 11/21/19 10:00 11/21/19 12:00 11/21/19 14:00 Temperature 98.1 F 97.8 F Pulse Rate 68 81 70 Respiratory Rate 15 15 Blood Pressure 131/62 131/68 Pulse Oximetry 98 99 11/21/19 16:00 11/21/19 17:58 11/21/19 20:00 Temperature 98.0 F Pulse Rate 69 74 67 Respiratory Rate 14 Blood Pressure 130/70 Pulse Oximetry 98 11/21/19 22:00 11/22/19 00:00 11/22/19 04:00 Temperature 97.7 F 97.8 F 97.6 F Pulse Rate 63 63 65 Respiratory Rate 16 20 18 Blood Pressure 130/71 132/74 118/69 Pulse Oximetry 98 99 98 Intake/Output Intake/Output: Intake & Output 11/19/19 11/20/19 11/21/19 11/22/19 23:59 23:59 23:59 23:59 Intake Total 3285 810 380 Output Total 900 500 800 Balance 2384 310 -420 Meds/Results Medications: Active Medications Generic Name Dose Route Start Last Admin Trade Name Freq PRN Reason Stop Dose Admin Acetaminophen 650 mg 11/19/19 17:43 Tylenol Tablet PO Q4H PRN Mild Pain (1-3) or Fever Estradiol 0.5 mg 11/20/19 09:00 11/21/19 09:05 Estrace PO 0.5 mg DAILY HARRIET Administration Ibuprofen 600 mg 11/20/19 12:57 11/21/19 20:30 Motrin PO 600 mg Q6H PRN Administration Shoulder pain Lisinopril 10 mg 11/20/19 09:00 11/21/19 09:05 Prinivil PO 10 mg DAILY HARRIET Administration Melatonin 10 mg 11/19/19 22:15 Melatonin PO HS PRN Insomnia Metoprolol Succinate 50 mg 11/20/19 09:00 11/21/19 09:04 Toprol Xl PO 50 mg DAILY HARRIET Administration Morphine Sulfate 2 mg 11/19/19 17:43 11/19/19 23:22 Morphine Sulfate Inj IV PUSH 2 mg Q2H PRN Administration Pain Rated 7-10 Ondansetron HCl 4 mg 11/19/19 17:43 Zofran Inj IV PUSH Q4H PRN Nausea Radiology Results: ITS Impressions Head CT 11/19/19 15:57 IMPRESSION: No significant abnormality Carotid Doppler Study 11/20/19 14:25 IMPRESSION: 1. <50% stenosis in the right internal carotid artery. 2. <50% stenosis in the left internal carotid artery. Abdomen/Pelvis CT 11/21/19 14:52 IMPRESSION: Renal cysts Normal appendix Diverticulosis of the colon Labs Labs: Laboratory Results - last 24 hr 11/22/19 11/22/19 04:56 04:56 WBC 46.7 H RBC 3.70 L Hgb 10.9 L Hct 34.2 L MCV 92.4 MCH 29.5 MCHC 31.9 L RDW 15.5 H Plt Count 123 L MPV 10.8 H % Immature Plt Fraction 4.1 Sodium 135 L Potassium 3.8 Chloride 106 Carbon Dioxide 26 Anion Gap 3 L BUN 14 Creatinine 0.80 Estim Creat Clear Calc 58 Estimated GFR > 60 Glucose 90 Calcium 8.4
--- NOTE | 2019-11-22 08:38 | PM.DS ---
DS: Admitting Diagnosis Admitting Diagnosis Admitting Diagnosis: syncope DS: Discharge Diagnosis Discharge Diagnosis (1) Syncope: Qualifiers: Syncope type: unspecified Qualified Code(s): R55 - Syncope and collapse Code(s): R55 - Syncope and collapse Status: Acute Assessment and Plan: Likely vasovagal syncope by history, given recent diarrhea and showing some dehydration on labs. Telemetry shows normal sinus rhythm with 1 alarm of a pause of 2.09 sec earlier in stay; no alarms overnight and not other ectopy noted. Asymptomatic. Echo and carotid doppler unremarkable. Will rec f/u with PCP; have further discussion of op work up (2) Diarrhea: Code(s): R19.7 - Diarrhea, unspecified Status: Acute Assessment and Plan: Patient had exposure to C diff and began having diarrhea over a week ago. Diarrhea has resolved. [address] therapy[address] Jonas consulted and appreciate recommendations Will hold on abx at discharge per GI rec Will have her follow up with GI as needed should diarrhea recur (3) Hypokalemia: Code(s): E87.6 - Hypokalemia Status: Acute Assessment and Plan: K3.8 today. Resolved (4) Chronic lymphocytic leukemia: Code(s): C91.10 - Chronic lymphocytic leukemia of B-cell type not having achieved remission Status: Acute Assessment and Plan: Patient notes stable lymphadenopathy leukocytosis. To her knowledge she has no history of anemia and currently with mild thrombocytopenia. 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 Resume HCTZ at discharge DS: Summary Hospital Course Reason for hospitalization: Syncope, diarrhea, hypokalemia Hospital Course: Patient is a 68-year-old female with chronic lymphocytic leukemia, hypertension, and hyperlipidemia who presented to the emergency department on 11/18 for evaluation after two syncopal episodes. She had developed diarrhea 10 days prior with loose, foul smelling stools at least 3 times per day which persisted. She had been treated Flagyl 6 days prior for empiric treatment of c. diff. She had lower abdominal pain earlier in day of presentation and had a syncopal episode, followed by vomiting. While in the ED, she was found to be hypokalemic, and was replaced, but later in stay, this was felt to be erroneous lab draw as K was then 5.0. Patient admitted under the setting of syncopal episode. Please see H&P for further details. Presenting VS: Temp Pulse Resp Pulse Ox 97.8 F 72 17 98 11/19/19 15:09 11/19/19 15:09 11/19/19 15:09 11/19/19 15:09 BP 127/65 Presenting Pertinent labs: WBC 46.9k, H&H 9.3/29.3, lymp 87.8%, K 2.7, calcium 5.7, trop <0.012. Micro: C. diff toxin assay not detected Imaging: Head CT 11/19/19 15:57 IMPRESSION: No significant abnormality Carotid Doppler Study 11/20/19 14:25 IMPRESSION: 1. <50% stenosis in the right internal carotid artery. 2. <50% stenosis in the left internal carotid artery. Abdomen/Pelvis CT 11/21/19 14:52 IMPRESSION: Renal cysts Normal appendix Diverticulosis of the colon Echo 11/21/19 Summary 1. Complete two-dimensional, color flow and Doppler transthoracic echocardiogram is performed. 2. Left ventricular chamber dimension is normal. 3. Left ventricular systolic function is normal, estimated at 65-70%. 4. There is mildly increased left ventricular wall thickness. 5. Left ventricular septal wall motion is normal. 6. The left ventricular diastolic f
[2019-11-22 09:00] VITALS: PULSE 77
[2019-11-22] MEDS: estradioL 0.5 MG TABLET PO (09:00)
[2019-11-22] MEDS: METOPROLOL SUCCINATE EXT REL 50 MG TABCR PO (09:00)
[2019-11-22] MEDS: lisinopriL 10 MG TABLET PO (09:00)
== END 2019-11-22 10:08 | disposition home or self-care (01) | DRG 312 ==
LOC: ANHED 17:54 → ANH2MED 19:07
PROVIDERS: Physician Assistant; Admitting Provider Internal Medicine; Emergency Provider Family Medicine; PCP Family Medicine Adolescent Medicine; Visit Provider Physician Assistant
DX: R55 Syncope and collapse (principal); C91.10 Chronic lymphocytic leukemia of B-cell type not having achieved remission; R19.7 Diarrhea, unspecified; Z23 Encounter for immunization; E87.6 Hypokalemia; D69.6 Thrombocytopenia, unspecified; I10 Essential (primary) hypertension; E78.5 Hyperlipidemia, unspecified; E86.0 Dehydration; Z98.1 Arthrodesis status; Z90.710 Acquired absence of both cervix and uterus; Z20.818 Contact with and (suspected) exposure to other bacterial communicable diseases
CPT/HCPCS: 36415; 70450; 74176; 80048; 80053; 80076; 81001; 83735; 84484; 85025; 85027; 85055; 85610; 85730; 87324; 90471; 90686; 93005; 93306; 93880; 96361; 96374; 96375; 96376; 99285; A9270; G0008; G0378; J2270; J3480; J7030; J7120

== ENCOUNTER → 2020-06-11 14:58 | Outpatient (CLI) | payer MEDICARE, SELFPAY ==
--- NOTE | ~2020-06-11 | MR_ITS ---
EXAMINATION: MR shoulder RT wo con DATE: 06/11/2020 15:39 INDICATION: Right rotator cuff tear. TECHNIQUE: Magnetic resonance imaging (MRI) of the right shoulder was performed without intravenous c ontrast. Sequences included axial STIR FSE, coronal oblique PD-weighted FS FSE, PD-weighted FSE, and STIR FSE, and sagittal oblique STIR FSE and T1-weighted FSE. COMPARISON: None. FINDINGS: Coracoacromial arch: There are changes of acromioplasty and distal clavicle resection. There is moderate subacromial/subde ltoid bursitis. Rotator cuff: There is a full-thickness tear of supraspinatus and infraspinatus tendons measuring 3.0 cm anterior t o posterior by 3.5 cm proximal to distal. Teres minor tendon is normal. There is a partial tear of sy bscapularis tendon. There is mild volume loss and mild fatty atrophy of supraspinatus, infraspinatus, and subscapularis muscle bellies. Biceps tendon and glenoid labrum: There is a complete tear of proximal biceps tendon. There is widespread tearing of the glenoid labrum . Fluid: There is a moderate-sized glenohumeral joint effusion. Bones/cartilage: There is partial-thickness cartilage loss of glenoid, deep superiorly. There is partial-thickness car tilage loss of humeral head, deep superiorly. Osteophytes are noted. IMPRESSION: 1. Full-thickness tears of supraspinatus and infraspinatus tendons and partial-thickness tear of subs capularis tendon. 2. Moderate glenohumeral joint chondrosis. 3. Complete tear of proximal biceps tendon. 4. Moderate-sized glenohumeral joint effusion and moderate subacromial/subdeltoid bursitis. Reviewed, dictated and finalized at location A. IMPRESSION: 1. Full-thickness tears of supraspinatus and infraspinatus tendons and partial- thickness tear of subscapularis tendon. 2. Moderate glenohumeral joint chondrosis. 3. Complete tear of proximal biceps tendon. 4. Moderate-sized glenohumeral joint effusion and moderate subacromial/subdelto id bursitis.
== END ==
DX: S49.91XA Unspecified injury of right shoulder and upper arm, initial encounter (principal); M75.101 Unspecified rotator cuff tear or rupture of right shoulder, not specified as traumatic; M94.8X1 Other specified disorders of cartilage, shoulder; S46.211A Strain of muscle, fascia and tendon of other parts of biceps, right arm, initial encounter; M25.411 Effusion, right shoulder; M75.51 Bursitis of right shoulder
CPT/HCPCS: 73221

== ENCOUNTER → 2020-06-29 13:58 | Outpatient (CLI) | payer MEDICARE, SELFPAY ==
--- NOTE | ~2020-06-29 | MM_ITS ---
EXAMINATION: MM screening parmjit BI w anthony HISTORY: Screening TECHNIQUE: Craniocaudal and mediolateral oblique 3-D tomosynthesis images were obtained and synthetic 2-D images were generated. CAD analysis was submitted and interpreted. COMPARISON: Comparison to multiple prior studies sequentially, with oldest reviewed study dated 08/2011. BREAST PARENCHYMAL COMPOSITION: The breasts are heterogeneously dense, which may obscure small masses . FINDINGS: There is no evidence of suspicious mass, calcification, or architectural distortion to sugg est malignancy in either breast. There has been no suspicious interval change. IMPRESSION: 1. No mammographic evidence of malignancy. 2. Recommend routine screening mammography in one year. BI-RADS Category 1: Negative Reviewed, dictated and finalized at location A.
== END ==
PROVIDERS: PCP Family Medicine Adolescent Medicine; Visit Provider Family Medicine Adolescent Medicine
DX: Z12.31 Encounter for screening mammogram for malignant neoplasm of breast (principal)
CPT/HCPCS: 77063; 77067

== ENCOUNTER → 2020-08-08 14:59 | Outpatient (CLI) | payer MEDICARE, SELFPAY ==
--- NOTE | ~2020-08-08 | XR_ITS ---
EXAMINATION: XR shoulder RT min 2V DATE: 08/08/2020 15:31 INDICATION: Right shoulder pain. TECHNIQUE: 3 views of right shoulder were obtained. COMPARISON: None. FINDINGS: There is a reverse [id number] total right shoulder arthroplasty in near-anatomic align ment. No periprosthetic lucency to suggest loosening or infection. No fracture. There is mild osteoar thritis of acromioclavicular joint. IMPRESSION: 1. Total right shoulder arthroplasty in near-anatomic alignment. 2. Mild osteoarthritis of right acromioclavicular joint. Reviewed, dictated and finalized at location B.
== END ==
DX: M19.011 Primary osteoarthritis, right shoulder (principal); Z96.611 Presence of right artificial shoulder joint
CPT/HCPCS: 73030

== ENCOUNTER → 2022-01-13 11:56 | Outpatient (CLI) | payer MEDICARE, SELFPAY ==
--- NOTE | ~2022-01-13 | XR_ITS ---
EXAMINATION: XR hip RT min 2V DATE: 01/13/2022 12:25 INDICATION: Right hip pain post fall one week prior TECHNIQUE: Anteroposterior and cross-table lateral views of the right hip were obtained. COMPARISON: 09/22/2019 FINDINGS: Bone alignment is normal. No fracture. Mild right hip osteoarthritis. Mild right and moderate left sa croiliac osteoarthritis. Osteitis pubis. Moderate lower lumbar spondylosis. Small amount of enthesopa thic calcifications at the bilateral ischial tuberosities and right anterior iliac spine. IMPRESSION: 1. No acute osseous abnormality. Reviewed, dictated and finalized at location B.
== END ==
PROVIDERS: PCP Family Medicine Adolescent Medicine; Visit Provider Family Medicine Adolescent Medicine
DX: M25.551 Pain in right hip (principal)
CPT/HCPCS: 73502

== ENCOUNTER → 2022-05-14 12:07 | Outpatient (CLI) | payer MEDICARE, SELFPAY ==
--- NOTE | ~2022-05-14 | MM_ITS ---
EXAMINATION: MM screening parmjit BI w anthony HISTORY: Screening mammogram TECHNIQUE: Craniocaudal and mediolateral oblique 3-D tomosynthesis images were obtained and synthetic 2-D images were generated. CAD analysis was submitted and interpreted. COMPARISON: 06/29/2020, , 05/02/2016 bilateral screening mammogram examinations BREAST PARENCHYMAL COMPOSITION: The breasts are heterogeneously dense, which may obscure small masses . FINDINGS: Stable benign-appearing circumscribed 6 x 5 x 10 mm posterior upper outer quadrant left kylee ast mass. Occasional bilateral breast calcifications. There is no evidence of suspicious mass, calcif ication, or architectural distortion to suggest malignancy in either breast. There has been no suspic ious interval change. IMPRESSION: 1. No mammographic evidence of malignancy. 2. Recommend routine screening mammography in one year. BI-RADS Category 2: Benign finding(s). Reviewed, dictated and finalized at location A. ORIZATION COORDINATOR
== END ==
PROVIDERS: PCP Family Medicine Adolescent Medicine; Visit Provider Family Medicine Adolescent Medicine
DX: Z12.31 Encounter for screening mammogram for malignant neoplasm of breast (principal)
CPT/HCPCS: 77063; 77067

== ENCOUNTER 2022-09-03 14:43 | Outpatient (CLI) | payer MEDICARE, SELFPAY ==
--- NOTE | ~2022-09-03 | XR_ITS ---
XR abdomen/kub 1V 09/03/2022 15:20 Indication: Microscopic hematuria Procedure: KUB Comparison: No prior studies for comparison. Findings: Bowel gas pattern is nonobstructive. Moderate colonic fecal loading. Severe lumbar spondylo sis. No renal stones identified. There is osteitis pubis. There is bilateral osteoarthritis of the hi ps. Moderate colonic fecal loading. Impression: 1: No acute abdominal abnormality. Reviewed, dictated and finalized at location L. Impression: 1: No acute abdominal abnormality.
--- NOTE | ~2022-09-03 | CT_ITS ---
EXAMINATION: CT abdomen pelvis wo/w con DATE: 09/03/2022 15:50 INDICATION: Microscopic hematuria TECHNIQUE: Computed tomography (CT) of the abdomen and pelvis was performed without and with 130 cc O mnipaque 350 intravenous contrast. The dose-length product was 1386.63 mGy-cm. Automated exposure con trol and iterative reconstruction technique were employed. COMPARISON: CT dated 11/21/2019 FINDINGS: Heart size normal. No significant pleural or pericardial effusion. There are infiltrates of the lingula and right lower lobe which may represent atelectasis or less likely developing pneumonia . No renal or ureteral stones. No hydronephrosis. There is a 2.3 cm left renal cyst. There is a smaller exophytic 1 cm left renal cyst. There is a 1.8 cm exophytic right renal cyst. Elevated right diaphra gm appears chronic, suspicious for phrenic nerve paralysis. The liver, spleen, pancreas, adrenal glan ds are unremarkable. Gallbladder is present. Nonobstructive bowel gas pattern. Bladder is unremarkabl e. Ureters are normal in course and caliber. Colonic diverticulosis without evidence for diverticulit is. Status post hysterectomy. Moderate lumbar spondylosis. No evidence for ventral hernia. IMPRESSION: 1. Subtle infiltrates of the right lower lobe and lingula which may represent atelectasis or less lik ana developing pneumonia. 2: Chronic elevation of the right diaphragm, suspicious for phrenic nerve paralysis. 3: Bilateral renal cysts. Reviewed, dictated and finalized at location L. IMPRESSION: 1. Subtle infiltrates of the right lower lobe and lingula which may represent a telectasis or less likely developing pneumonia. 2: Chronic elevation of the right diaphragm, suspicious for phrenic nerve para lysis. 3: Bilateral renal cysts.
[2022-09-03 15:30] LABS: Estimated Glomerular Filt Rate > 60
== END 2022-09-03 14:44 | disposition home or self-care (01) ==
PROVIDERS: PCP Family Medicine Adolescent Medicine; Visit Provider Nurse Practitioner Family
DX: R31.29 Other microscopic hematuria (principal); N28.1 Cyst of kidney, acquired; R91.8 Other nonspecific abnormal finding of lung field
CPT/HCPCS: 74018; 74178; Q9967

== ENCOUNTER → 2022-12-30 10:43 | Outpatient (CLI) | payer MEDICARE, SELFPAY ==
--- NOTE | ~2022-12-30 | MR_ITS ---
MRI of the right hip Clinical history: Pain Technique: Coronal T1-weighted, T2-weighted, and proton-density fat-sat images, and axial T1-weighted and proton-density fat-sat images were acquired through the pelvis. Coronal T2-weighted images and c oronal, axial, and sagittal proton-density fat-sat images were acquired through the right hip. Findings: There is no fracture, avascular necrosis, or transient osteoporosis of either hip. Bone mar row signals in the proximal femora and visualized pelvic bones are essentially unremarkable. There is probable mild diffuse chondromalacia bilateral hip joints. No significant hip joint effusion seen ei ther side. There is probable mild degenerative attenuation of the right acetabulum without definite d iscrete, detached labral tear. There is edematous change of the distal right quadratus femoris/obturator externus muscle bellies. Re maining musculature appears unremarkable. Tendons are intact. No evidence for bursitis. No soft tissu e mass or fluid collection evident. IMPRESSION: Edematous change of the distal right quadratus femoris/obturator external muscle bellies, consistent with low-grade muscle strain. Mild degenerative change of both hip joints, as detailed above. Reviewed, dictated and finalized at location . IMPRESSION: Edematous change of the distal right quadratus femoris/obturator external muscl e bellies, consistent with low-grade muscle strain. Mild degenerative change of both hip joints, as detailed above.
== END ==
PROVIDERS: PCP Family Medicine Adolescent Medicine; Visit Provider Orthopaedic Surgery
DX: M16.0 Bilateral primary osteoarthritis of hip (principal)
CPT/HCPCS: 73721

== ENCOUNTER 2023-03-19 10:25 | Outpatient (CLI) | payer MEDICARE, SELFPAY ==
--- NOTE | 2023-03-19 10:34 | ECG_ITS ---
Measurements Intervals [place] Rate: 82 P: 29 LA: 177 QRS: -20 QRSD: 83 T: 19 QT: 330 QTc: 387 Interpretive Statements SINUS RHYTHM LOW QRS VOLTAGE IN PRECORDIAL LEADS POOR R WAVE PROGRESSION, ANTERIOR LEADS INFERIOR INFARCT, AGE INDETERMINATE BASELINE ARTIFACT- I, II, III, AVR, AVL ABNORMAL ECG COMPARED TO ECG 11/19/2019 15:18:21 NO SIGNIFICANT CHANGES Electronically Signed On 03-19-2023 10:49:52 WIRE WEAVER by Pablo Ashford D.O.
[2023-03-19 11:06] LABS: Anion Gap 8 mmol/L (8-16); Blood Urea Nitrogen 20 mg/dL (7-17); Calcium 9.8 mg/dL (8.4-10.2); Carbon Dioxide 28 mmol/L (22-30); Chloride 101 mmol/L (98-107); Estimated Glomerular Filt Rate > 60; Glucose 90 mg/dL (65-110); Potassium 4.1 mmol/L (3.4-5.0); Sodium 137 mmol/L (137-145)
== END 2023-03-19 10:26 | disposition home or self-care (01) ==
PROVIDERS: Anesthesiology; PCP Family Medicine Adolescent Medicine; Visit Provider Orthopaedic Surgery
DX: Z01.818 Encounter for other preprocedural examination (principal); I10 Essential (primary) hypertension; R94.31 Abnormal electrocardiogram [ECG] [EKG]; R93.1 Abnormal findings on diagnostic imaging of heart and coronary circulation
CPT/HCPCS: 36415; 80048; 93005

== ENCOUNTER 2023-03-23 01:23 | Day surgery (SDC) | payer MEDICARE, SELFPAY ==
--- NOTE | 2023-03-19 08:40 | PC.NURSE ---
Report to the Outpatient Waiting Room, entrance under the green pavilion located off [facility], at time __1300 on date __03/23/23 . Planned Procedure Time: ___1500 . Time changes happen often and if your time is changed the preop area will call you the afternoon before. - You and your visitor will be asked to self-screen and do not enter if you have any COVID symptoms. - A mask is optional within the hospital at this time. Patients may have clear liquids (water, carbonated beverages, clear teas, apple juice) until 3 hours prior to surgery( 1200 NOON) with a maximum of 20 ounces. - No food from midnight until time of surgery - Infants may have breast milk until 4 hours before surgery, infant formula 6 hours prior to surgery. - Children will be allowed to drink immediately following surgery. If applicable, please bring a bottle or sippy cup to assist with drinking. Juice, water, soda, and popsicles are readily available. For infants on formula, please bring formula the day of surgery. Pacifiers are allowed. Take the following medications with a SIP of water the morning of surgery: __NONE DO NOT STOP ANY OF YOUR OTHER PRESCRIPTION MEDICATIONS PRIOR TO SURGERY ?EXCEPT THE FOLLOWING Medications to discontinue per physician __HOLD ASPIRIN 7 DAYS PRE OP PER DR GARCÍA. PT STATES LAST DOSE WAS 03/17/23__HOLD MULTIVITAMIN 3 DAYS PRE OP.LAST DOSE 03/19/23 Please no make-up, nail estonian, hairspray, perfume, deodorant, or body powder the day of surgery. No jewelry (including any body piercings) or valuables the day of surgery, leave them at home. Please take a shower or bath the night before, or the morning of, surgery with an antibacterial soap. Wear comfortable, loose fitting clothing. Children are encouraged to wear pajamas. - Jewelry must be removed prior to entering the operating room. Rings and piercings that are not removed may be cut off. - The hospital will not accept responsibility for valuables. - Please leave all valuables, including medications, at home the day of surgery. If you are going home after surgery, a licensed after school driver must drive you home. - NO public transportation without another adult if you receive anesthesia. - We recommend that an adult stay with you for 24 hours following discharge. - We also recommend that you do not drive, make important decision, drink alcoholic beverages, or take any drugs that were not prescribed by your health care provider for at least 24 hours after your discharge time Follow any additional instructions given to you from your surgeon. If you or anyone in your household have experienced Covid symptoms in the past week, please notify your surgeon or the nurse liaison at the phone number below for possible testing. Telephone instructions given to __PATIENT and asked if any additional questions and then verbalized understanding. Patient advised to call surgeon office or pre surgery nurse liaison [phone] if any additional questions.
[2023-03-19 08:50] VITALS: BMI 29.7
[2023-03-23] VITALS (8 sets, daily range): BP systolic 124–144; BP diastolic 63–89; PULSE 73–88; RESP 8–14; TEMP 36.4–37.3; O2SAT 98–100
--- NOTE | 2023-03-23 14:09 | WPDANESEPPF ---
Anes - Initial Pre Proc Eval Procedure: Operation Date: 03/23/23 15:00 Proposed Procedures p Arthroscopic Right Hip Iliotibial Band Release with Bursectomy - Zaki Zamorano MD Date/Time: 03/23/23 14:09 Surgeon: Zaki Zamorano MD Pre Op Diagnosis: Trocanteric Bursitis Right Hip Patient Data Age: 72 Gender: F Height: 1.6 m Weight: 74.2 kg Last Vital Signs Temp 37.3 C 03/23/23 13:24 Pulse 88 03/23/23 13:24 Resp 14 03/23/23 13:24 BP 136/89 03/23/23 13:24 Pulse Ox 100 03/23/23 13:24 O2 Del Method Room Air 03/23/23 13:24 Allergies Allergy/AdvReac Type Severity Reaction Status Date / Time oxycodone Allergy Mild Rash Verified 03/23/23 13:29 Home Medications Medication Instructions Recorded Confirmed Type lisinopril 10 mg tablet 10 mg PO DAILY #90 tabs 09/11/22 03/20/23 Rx lorazepam 1 mg tablet 1 mg PO QHS PRN sleep #90 tabs 10/17/22 03/20/23 Rx spironolactone 50 mg tablet See Rx Instructions .Route 02/22/23 03/20/23 Rx .COMPLEX #90 tabs acetaminophen 500 mg capsule 1,000 mg PO PRN PRN Pain 03/19/23 03/20/23 History Patient hx anesthesia problems: post op nausea/vomiting Family hx anesthesia problems: none Results Review: All pre-operative results and documents have been reviewed as part of the pre-operative evaluation. [facility] Past Medical History Medical History Chronic lymphocytic leukemia Diagnosed in 2010. She is followed by Dr. Rojas at [facility]. Hypertension Osteitis pubis Syncope Surgical History Surgical History History of appendectomy History of colonoscopy (~05/17/19) Per Dr. Jonas, with findings of internal hemorrhoids and a descending colon polyp (tubular adenoma). History of fusion of cervical spine History of hysterectomy History of repair of right rotator cuff 3x History of repair of rotator cuff left rotator cuff repair History of tonsillectomy History of total replacement of right shoulder joint Family History Family History Unknown Arthritis Cardiovascular disease Father Chronic obstructive pulmonary disease, unspecified Social History Social History Social History: Surrogate decision maker: Marc Tobar, . Code status: Full code. Smoking status: Never smoker Second hand tobacco smoke exposure: No Alcohol intake: current Drinks per week: 1 Substance use: never Substance use type: does not use Do You Feel Safe in your Home?: Yes Lack of Transportation: No Lack of Food: Never True Current Housing: I Have Housing Concerned About Future Housing: No Difficulty Paying Gas/Electric Bills: No Difficulty Paying for Meds: No Currently Unemployed: No Education: High School Diploma/GED Difficulty w/ Childcare or Family Care: No Living arrangements: with family Additional living arrangements comments: Lives in [place] with her . Occupation/Education: retired Additional occupation/education comments: Retired from working at a dental office. Gender identity (if verbalized by the patient): Female Sexual Orientation (if Verbalized by the Patient): Straight or Heterosexual Spiritual care concerns: No Agree to blood products: Yes Anes - Eval Final PreProcedure Day of Procedure 03/23/23 14:09 Patient weight: overweight Heart: regular rate and rhythm Lungs: clear to auscultation Airway: Mallampati scale class II Neurological: alert and oriented Last oral intake: >/= 8 hours ASA classification: III Emergent: no Anesthetic plan: proceed Anesthesia type and monitoring: general LMA and standard monitoring Results Review: All pre-operative results and documents have been reviewed as part of the pre-operative evaluation. Informed Consen
[2023-03-23] MEDS: KETOROLAC 15 MG/ML VIAL (*BKC) IV PUSH (14:30)
[2023-03-23] MEDS: LACTATED RINGERS 1,000 ML 30 ML IV CONT (14:30)
[2023-03-23] MEDS: ACETAMINOPHEN 500 MG TABLET 1000 MG PO (14:30)
--- NOTE | 2023-03-23 14:39 | SUR.PREOP ---
Talked with Dr. Zamorano about abx, he wants ancef 2gm.
--- NOTE | 2023-03-23 14:45 | WPDHPUPDATE1 ---
History and Physical Update Update Date/Time: 03/23/23 14:45 History and Physical has been reviewed, including an updated exam of the patient. There are NO changes in the patient's condition. Risks, benefits, and alternatives have been discussed and questions answered. Patient agrees to proceed with procedure.
[2023-03-23] MEDS: ceFAZolin 2 GM/D5W 50 ML 2 GM/50 ML BAG IVPB (15:02)
[2023-03-23] MEDS: BUPIVACAINE/EPINEPHRINE 0.5% 50 ML VIAL 30 ML INFILTRATE (15:34)
--- NOTE | 2023-03-23 16:05 | W.PM.PROC2 ---
Procedure Note - Detailed Date of Procedure 03/23/23 Pre-op Diagnosis Trocanteric Bursitis Right Hip Post-op Diagnosis Same Procedure Performed Arthroscopic iliotibial band release and trochanteric bursectomy, right hip. Surgeon Zaki Zamorano MD Anesthesia General Description of Procedure Preoperative antibiotics were given. The patient was brought to the operating room. A general anesthetic was administered. She was carefully placed in the lateral position. The hip was prepped and draped in the usual sterile fashion. Standard superior and inferior arthroscopic portals were established. The high point of the greater trochanter identified and marked with a spinal needle. Two portals were established proximal and distal. The fascia was cleared using the arthroscopic shaver. A longitudinal split was created in the fascia over the high point of the trochanter. The leg was abducted and the bursa was removed using the shaver. The radiofrequency probe was used were necessary to control small bleeding vessels. Particular care was taken to avoid moving posteriorly towards the sciatic nerve. The abductor musculature was identified and protected. There were no tears noted. Evidence of abrasion at the high point of the trochanter was observed. The complete release of this area was confirmed. The hip was internally and externally rotated to assure that there was no further contact or pressure points. Estimated Blood Loss 10 Drains No Pathology None sent Complications No immediate complications Condition Stable Disposition PACU [facility] Billing Surgery - Charge Forward: Surgery Billing
[2023-03-23] MEDS: fentaNYL CITRATE INJ (*CRX) 100 MCG/2 ML VIAL 25 MCG IV PUSH (16:46)
== END 2023-03-23 17:55 | disposition home or self-care (01) ==
PROVIDERS: PCP Family Medicine Adolescent Medicine; Visit Provider Orthopaedic Surgery
PROC: (CPT 29860; principal; 2023-03-23 15:00)
DX: M70.61 Trochanteric bursitis, right hip (principal); I10 Essential (primary) hypertension; C91.10 Chronic lymphocytic leukemia of B-cell type not having achieved remission; Z86.010 Personal history of colon polyps; Z82.49 Family history of ischemic heart disease and other diseases of the circulatory system
CPT/HCPCS: 27062; 29999; A9270; J0690; J1100; J1170; J1885; J2371; J2405; J2704; J3010; J7120

== ENCOUNTER 2023-08-19 09:36 | Outpatient (CLI) | payer MEDICARE, SELFPAY ==
--- NOTE | ~2023-08-19 | XR_ITS ---
AP view of the pelvis and AP and lateral views of the right hip Clinical history: Pain Findings: No acute fracture or dislocation is seen. Osseous alignment is anatomic. Bilateral hip and SI joint spaces are preserved. Osteitis pubis noted. Soft tissues are unremarkable. Impression: Osteitis pubis. Reviewed, dictated and finalized at location . Impression: Osteitis pubis.
== END 2023-08-19 09:37 ==
LOC: MICIMG 09:38
PROVIDERS: PCP Family Medicine Adolescent Medicine; Visit Provider Family Medicine Adolescent Medicine
DX: M25.551 Pain in right hip (principal); M86.8X8 Other osteomyelitis, other site
CPT/HCPCS: 73502

== ENCOUNTER 2024-03-23 12:53 | Outpatient (CLI) | payer MEDICARE, SELFPAY ==
--- NOTE | ~2024-03-23 | MM_ITS ---
EXAMINATION: MM screening parmjit BI w anthony HISTORY: Screening TECHNIQUE: Craniocaudal and mediolateral oblique 3-D tomosynthesis images were obtained and synthetic 2-D images were generated. CAD analysis was submitted and interpreted. COMPARISON: Comparison to multiple prior studies sequentially, with oldest reviewed study dated 08/29. BREAST PARENCHYMAL COMPOSITION: Dense: The breasts are heterogeneously dense, which may obscure small masses FINDINGS: There is no evidence of suspicious mass, calcification, or architectural distortion to sugg est malignancy in either breast. There has been no suspicious interval change. IMPRESSION: 1. No mammographic evidence of malignancy. 2. Recommend routine screening mammography in one year. BI-RADS Category 1: Negative Reviewed, dictated and finalized at location B. UREMENT ACCOUNTANT
== END 2024-03-23 12:54 | disposition home or self-care (01) ==
LOC: MICIMG 12:55
PROVIDERS: PCP Family Medicine Adolescent Medicine; Visit Provider Family Medicine Adolescent Medicine
DX: Z12.31 Encounter for screening mammogram for malignant neoplasm of breast (principal)
CPT/HCPCS: 77063; 77067

== ENCOUNTER 2024-07-08 00:10 | Day surgery (SDC) | payer MEDICARE, SELFPAY ==
[2024-06-27 14:01] VITALS: BMI 29.8
--- OUTSIDE RECORDS SUMMARY | 2024-07-08 00:18 | XMS_ITS | Clinical Summary ---
Author Organization [facility] Address [address] [place] [address] Phone Care Team Providers Care Industrial Truck Driver Name Role Phone Tor Ontiveros MD Primary Care Provider + Allergies Active Allergy Reactions Criticality Noted Date Comments Oxycodone-Acetaminophen Rash 12/05/2020 Medications ondansetron (Zofran ODT) 4 MG TABLET DISPERSIBLE Take 1 Tablet by mouth every 8 hours as needed for Nausea - 1st line. 10 Tablet 12/05/2020 Active prochlorperazine (COMPAZINE) 5 MG Tablet Take 2 Tablets by mouth every 6 hours as needed for Nausea - 2nd line. 10 Tablet 12/05/2020 Active potassium chloride (MICRO-K) 10 MEQ Capsule CR Take 1 Capsule by mouth 2 times daily. 60 Capsule 12/05/2020 Active Active Problems No known active problems Social History Tobacco Use Types Packs/Day Years Used Date Smoking Tobacco: Never Smokeless Tobacco: Never Alcohol Use Standard Drinks/Week Comments Not Currently 0 (1 standard drink = 0.6 oz pur e alcohol) Comments Unknown Sex and Gender Information Value Date Recorded Sex Assigned at Not on file Legal Sex Female 2:08 PM CDT Gender Identity Not on file Sexual Orientation Not on file Last Filed Vital Signs Vital Sign Reading Time Taken Comments Blood Pressure 125/71 12/05/2020 5:30 PM CDT Pulse 71 12/05/2020 5:30 PM CDT Temperature 36.4 C (97.6 F) 12/05/2020 2:35 PM CDT Respiratory Rate 9 12/05/2020 5:30 PM CDT Oxygen Saturation 97% 12/05/2020 5:30 PM CDT Inhaled Oxygen Concentration - - Weight 77.1 kg (170 lb) 12/05/2020 2:35 PM CDT Height 157.5 cm (5' 2 ) 12/05/2020 2:35 PM CDT Body Mass Index 31.09 12/05/2020 2:35 PM CDT Plan of Treatment Not on file Insurance MEDICARE [facility] Care Teams Industrial Truck Driver Relationship Specialty Start Date End Date Tor Ontiveros MD [address] [place] [address] PCP - General Family Medicine 12/05/20
--- OUTSIDE RECORDS SUMMARY | 2024-07-08 00:18 | XMS_ITS | Referral Summary ---
Author Organization [facility] Address [address] [place] [address] Care Team Providers Care News Library Director Name Role Phone Tor Ontiveros MD Primary Care Prov ider Allergies Active Allergy Reactions Criticality Noted Date Comments Oxycodone-Acetaminophen Rash Medium 12/26/2010 Medications lisinopriL (PRINIVIL,ZESTRI L) 10 mg tabletIndication s:CLL (chronic lymphocytic leukemia) ([facility]) Take 1 tablet (10 mg total) by mouth daily 30 tablet 11 11/29/2020 Active aspirin 81 mg capsuleIndicatio ns:CLL (chronic lymphocytic leukemia) ([facility]) Take by mouth Active spironolactone (ALDACTONE) 50 mg tablet Take 1 tablet (50 mg total) by mouth daily 03/18/2022 Active fpfbtunr-cmk-AH- khmoo-errc-XUD 0.2-1.5-0.5-50 mg tabletIndication s:CLL (chronic lymphocytic leukemia) ([facility]) Take by mouth Active multivitamin-iro n-folic acid (Centrum Women) 18-400 mg-mcg tabletIndication s:CLL (chronic lymphocytic leukemia) ([facility]) 01/15/2024 Act francia LORazepam (ATIVAN) 1 mg tabletIndication s:CLL (chronic lymphocytic leukemia) ([facility]) 1 MG ORALLY EVERY DAY AT BEDTIME NEEDED FOR SLEEP 01/06/2024 Active atorvastatin (LIPITOR) 10 mg tabletIndication s:CLL (chronic lymphocytic leukemia) ([facility]) 01/18/2024 Act francia diphenhydrAMINE- acetaminophen (TYLENOL PM) 25-500 mg tabletIndication s:CLL (chronic lymphocytic leukemia) ([facility]) Take 1 tablet by mouth Active Active Problems Problem Noted Date Diagnosed Date CLL (chronic lymphocytic leukemia) 01/13/2023 Immunizations Immunization Administration Dates Next Due Influenza, Quadrivalent, Spl it, Preservative Free, Intramuscular 11/22/2019 Social History Tobacco Use Types Packs/Day Years Used Date Smoking Tobacco: Never Smokeless Tobacco: Never Tobacco Cessation:Counseling Given: Not Answered Comments Unknown Sex and Gender Information Value Date Recorded Sex Assigned at Not on file Legal Sex Female 2:37 AM DISPLAY DIRECTOR Gender Identity Not on file Sexual Orientation Not on file Last Filed Vital Signs Vital Sign Reading Time Taken Comments Blood Pressure 119/77 02/01/2024 9:51 AM DISPLAY DIRECTOR Pulse 78 02/01/2024 9:51 AM DISPLAY DIRECTOR Temperature 36.6 C (97.9 F) 02/01/2024 9:51 AM DISPLAY DIRECTOR Respiratory Rate 18 02/01/2024 9:51 AM DISPLAY DIRECTOR Oxygen Saturation 98% 02/01/2024 9:51 AM DISPLAY DIRECTOR Inhaled Oxygen Concentration - - Weight 76.2 kg (168 lb) 02/01/2024 9:49 AM DISPLAY DIRECTOR Height 157.5 cm (5' 2.01 ) 02/09/2023 10:[address] Body Mass Index 30.72 02/09/2023 10:32 AM DISPLAY DIRECTOR Plan of Treatment Not on file Insurance MEDICARE [facility] MEDICARE [facility] MEDICARE [facility] MEDICARE SUPPLEMENT Care Teams News Library Director Relationship Specialty Start Date End Date Tor Ontiveros MD [address] [place] [address] PCP - General Family Medicine 09/07/19
--- OUTSIDE RECORDS SUMMARY | 2024-07-08 00:18 | XMS_ITS | Clinical Summary ---
Author Organization [facility] Address [address] [place] [address] Care Team Providers Care Log Haul Chain Feeder Name Role Phone Tor Ontiveros MD Primary Care Prov ider Allergies Active Allergy Reactions Criticality Noted Date Comments Oxycodone-Acetaminophen Rash Medium 12/26/2010 Medications lisinopriL (PRINIVIL,ZESTRI L) 10 mg tabletIndication s:CLL (chronic lymphocytic leukemia) ([facility]) Take 1 tablet (10 mg total) by mouth daily 30 tablet 11 11/29/2020 Active aspirin 81 mg capsuleIndicatio ns:CLL (chronic lymphocytic leukemia) ([facility]) Take by mouth Active spironolactone (ALDACTONE) 50 mg tablet Take 1 tablet (50 mg total) by mouth daily 03/18/2022 Active ctyydjzi-dlv-LJ- awouj-cbqn-HUO 0.2-1.5-0.5-50 mg tabletIndication s:CLL (chronic lymphocytic leukemia) ([facility]) Take by mouth Active multivitamin-iro n-folic acid (Centrum Women) 18-400 mg-mcg tabletIndication s:CLL (chronic lymphocytic leukemia) ([facility]) 01/15/2024 Act francia LORazepam (ATIVAN) 1 mg tabletIndication s:CLL (chronic lymphocytic leukemia) ([facility]) 1 MG ORALLY EVERY DAY AT BEDTIME NEEDED FOR SLEEP 01/06/2024 Active atorvastatin (LIPITOR) 10 mg tabletIndication s:CLL (chronic lymphocytic leukemia) ([facility]) 01/18/2024 Act francia diphenhydrAMINE- acetaminophen (TYLENOL PM) 25-500 mg tabletIndication s:CLL (chronic lymphocytic leukemia) ([facility]) Take 1 tablet by mouth Active Active Problems Problem Noted Date Diagnosed Date CLL (chronic lymphocytic leukemia) 01/13/2023 Immunizations Immunization Administration Dates Next Due Influenza, Quadrivalent, Spl it, Preservative Free, Intramuscular 11/22/2019 Family History Medical History Relation Name Comments Colon cancer Brother Relation Name Status Comments Brother Social History Tobacco Use Types Packs/Day Years Used Date Smoking Tobacco: Never Smokeless Tobacco: Never Tobacco Cessation:Counseling Given: Not Answered Comments Unknown Sex and Gender Information Value Date Recorded Sex Assigned at Not on file Legal Sex Female 2:37 AM LABOR AND DELIVERY REGISTERED NURSE Gender Identity Not on file Sexual Orientation Not on file Obstetrics History Last Filed Vital Signs Vital Sign Reading Time Taken Comments Blood Pressure 119/77 02/01/2024 9:51 AM LABOR AND DELIVERY REGISTERED NURSE Pulse 78 02/01/2024 9:51 AM LABOR AND DELIVERY REGISTERED NURSE Temperature 36.6 C (97.9 F) 02/01/2024 9:51 AM LABOR AND DELIVERY REGISTERED NURSE Respiratory Rate 18 02/01/2024 9:51 AM LABOR AND DELIVERY REGISTERED NURSE Oxygen Saturation 98% 02/01/2024 9:51 AM LABOR AND DELIVERY REGISTERED NURSE Inhaled Oxygen Concentration - - Weight 76.2 kg (168 lb) 02/01/2024 9:49 AM LABOR AND DELIVERY REGISTERED NURSE Height 157.5 cm (5' 2.01 ) 02/09/2023 10:[address] Body Mass Index 30.72 02/09/2023 10:32 AM LABOR AND DELIVERY REGISTERED NURSE Plan of Treatment Health Maintenance Due Date Last Done Comments Breast Cancer Screening-Mammogram 1950 Colon Cancer Screening-Colonoscopy 1950 Depression Screening 1950 Fall Risk Assessment 1950 Hepatitis C Screening 1950 Osteoporosis Screening-Bone Density Scan 1950 DTaP/Tdap/Td Vaccine (1 - Tdap) 1961 Hepatitis B Screening 1968 Pneumococcal vaccine 65+ (1 of 2 - PCV) 1969 Zoster Vaccine (1 of 2) 1969 Well Visit 65+ 11/24/2015 Covid-19 Vaccine (3 - Pfizer risk series) 06/25/2020 05/28/2020, 05/01/2020 Influenza Vaccine (Season Ended) 2024 11/22/19 20 Insurance MEDICARE [facility] MEDICARE [facility] MEDICARE [facility] MEDICARE SUPPLEMENT Care Teams Log Haul Chain Feeder Relationship Specialty Start Date End Date Tor Ontiveros MD [address] [place] [address] PCP - General Family Medicine 09/07/19
--- OUTSIDE RECORDS SUMMARY | 2024-07-08 00:18 | XMS_ITS | Encounter Summary ---
Author Organization [facility] Address [address] [place] [address] Phone Care Team Providers Care Statistics Tutor Name Role Phone Tor Ontiveros MD Primary Care Prov ider Encounter Details Date Type Department Care Team (Latest Contact Info) Description 11/22/2019 Orders Only [facility] Scanning, Provider Social History Tobacco Use Types Packs/Day Years Used Date Smoking Tobacco: Never Comments Unknown Sex and Gender Information Value Date Recorded Sex Assigned at Not on file Legal Sex Female 2:37 AM CUSTODIAL SUPERVISOR Gender Identity Not on file Sexual Orientation Not on file documented as of this encounter Plan of Treatment Not on file documented as of this encounter Procedures Procedure Name Priority Date/Time Associated Diagnosis Comments SCAN - LABS 11/22/2019 documented in this encounter Results * SCAN - LABS (11/22/2019) us Provider Scanning Final Result documented in this encounter Visit Diagnoses Not on filedocumented in this encounter Care Teams Statistics Tutor Relationship Specialty Start Date End Date Tor Ontiveros MD [address] [place] [address] PCP - General Family Medicine 09/07/19 documented as of this encounter
[2024-07-08 08:46] VITALS: BP 114/75; PULSE 86; RESP 20; TEMP 36.4; O2SAT 100; BMI 29.1
--- NOTE | 2024-07-08 08:53 | WPDANESEPPF ---
Anes - Initial Pre Proc Eval Procedure: Operation Date: 07/08/24 10:00 Proposed Procedures p Colonoscopy - Souleymane Armijo MD Date/Time: 07/08/24 08:53 Surgeon: Souleymane Armijo MD Pre Op Diagnosis: Personal hx of colon polyps Patient Data Age: 73 Gender: F Height: 1.6 m Weight: 76.4 kg Allergies Allergy/AdvReac Type Severity Reaction Status Date / Time oxycodone Allergy Mild Rash Verified 07/08/24 08:52 Home Medications ?Medication ?Instructions ?Recorded ?Confirmed ?Type acetaminophen 500 mg capsule 1,000 mg PO PRN PRN Pain 03/19/23 06/27/24 History lorazepam 1 mg tablet 1 mg PO QHS PRN sleep #90 tabs 09/10/23 06/27/24 Rx fludrocortisone 0.1 mg tablet 0.1 mg PO DAILY #90 tabs 12/22/23 06/27/24 Rx lisinopril 10 mg tablet 10 mg PO DAILY #90 tabs 01/29/24 07/08/24 Rx spironolactone 50 mg tablet See Rx Instructions .Route 05/11/24 07/08/24 Rx .COMPLEX #90 tabs aspirin 81 mg tablet,delayed 81 mg PO DAILY 06/27/24 07/08/24 History release (Adult Aspirin Regimen) multivitamin (Daily Multi-Vitamin 1 tablet PO DAILY 06/27/24 07/08/24 History tablet) atorvastatin 10 mg tablet 10 mg PO DAILY #90 tabs 07/05/24 07/08/24 Rx Patient hx anesthesia problems: none Family hx anesthesia problems: none Results Review: All pre-operative results and documents have been reviewed as part of the pre-operative evaluation. [facility] Past Medical History Medical History Osteitis pubis Syncope Chronic lymphocytic leukemia Diagnosed in 2010. She is followed by Dr. Rojas at [facility]. Hypertension Surgical History Surgical History History of hip surgery (03/23/23) IT Band Release w/Bursectomy Rt Hip History of total replacement of right shoulder joint History of repair of rotator cuff left rotator cuff repair History of tonsillectomy History of hysterectomy History of appendectomy History of fusion of cervical spine History of colonoscopy (05/17/19) Per Dr. Jonas, with findings of internal hemorrhoids and a descending colon polyp (tubular adenoma). History of repair of right rotator cuff 3x Family History Family History Unknown Arthritis Cardiovascular disease Father Chronic obstructive pulmonary disease, unspecified Social History Social History Social History: Surrogate decision maker: Marc Tobar, . Code status: Full code. Smoking status: Never smoker Second hand tobacco smoke exposure: No Alcohol intake: current Drinks per week: 1 Substance use: never Substance use type: does not use Do You Feel Safe in your Home?: Yes Lack of Transportation: No Lack of Food: Never True Current Housing: I Have Housing Concerned About Future Housing: No Difficulty Paying Gas/Electric Bills: No Difficulty Paying for Meds: No Currently Unemployed: No Education: High School Diploma/GED Difficulty w/ Childcare or Family Care: No Living arrangements: with family Additional living arrangements comments: Lives in [place] with her . Occupation/Education: retired Additional occupation/education comments: Retired from working at a dental office. Gender identity (if verbalized by the patient): Female Sexual Orientation (if Verbalized by the Patient): Straight or Heterosexual Spiritual care concerns: No Agree to blood products: Yes Anes - Eval Final PreProcedure Day of Procedure 07/08/24 08:53 Patient weight: obese Heart: regular rate and rhythm Lungs: clear to auscultation Airway: Mallampati scale class II Neurological: alert and oriented Last oral intake: >/= 8 hours ASA classification: III Emergent: no Anesthetic plan: proceed Anesthesia type and monitoring: general GIVS and standard monitoring Results Review: All pre-operative results and documents have been reviewed as part of the pre-operative evaluation. Informed Consent: The patient's anesthetic plan and its attendant risks and benefits were discussed with the patient/family/POA. Questions were solicited and answers provided to the satisfaction of the patient/family/POA.
[2024-07-08] MEDS: LACTATED RINGERS 1,000 ML 150 ML IV CONT (09:03)
--- NOTE | 2024-07-08 09:52 | PM.IMHP ---
H&P: HPI History of Present Illness Date/Time: 07/08/24 09:52 Chief Complaint: Family history of colon cancer Narrative: This patient has family history of colorectal cancer. her father had colorectal cancer at age 80 and her brother in his 50s. Review of Systems Review of Systems: All systems reviewed & are unremarkable except as noted in HPI and below PMFSH Past Medical History Medical History Osteitis pubis Syncope Chronic lymphocytic leukemia Diagnosed in 2010. She is followed by Dr. Rojas at [facility]. Hypertension Surgical History Surgical History History of hip surgery (03/23/23) IT Band Release w/Bursectomy Rt Hip History of total replacement of right shoulder joint History of repair of rotator cuff left rotator cuff repair History of tonsillectomy History of hysterectomy History of appendectomy History of fusion of cervical spine History of colonoscopy (05/17/19) Per Dr. oJnas, with findings of internal hemorrhoids and a descending colon polyp (tubular adenoma). History of repair of right rotator cuff 3x Family History Family History Unknown Arthritis Cardiovascular disease Father Chronic obstructive pulmonary disease, unspecified Social History Social History Social History: Surrogate decision maker: Marc Tobar, . Code status: Full code. Smoking status: Never smoker Second hand tobacco smoke exposure: No Alcohol intake: current Drinks per week: 1 Substance use: never Substance use type: does not use Do You Feel Safe in your Home?: Yes Lack of Transportation: No Lack of Food: Never True Current Housing: I Have Housing Concerned About Future Housing: No Difficulty Paying Gas/Electric Bills: No Difficulty Paying for Meds: No Currently Unemployed: No Education: High School Diploma/GED Difficulty w/ Childcare or Family Care: No Living arrangements: with family Additional living arrangements comments: Lives in [place] with her . Occupation/Education: retired Additional occupation/education comments: Retired from working at a dental office. Gender identity (if verbalized by the patient): Female Sexual Orientation (if Verbalized by the Patient): Straight or Heterosexual Spiritual care concerns: No Agree to blood products: Yes Meds Home Medications and Allergies Home Medications ?Medication ?Instructions ?Recorded ?Confirmed ?Type acetaminophen 500 mg capsule 1,000 mg PO PRN PRN Pain 03/19/23 06/27/24 History lorazepam 1 mg tablet 1 mg PO QHS PRN sleep #90 tabs 09/10/23 06/27/24 Rx fludrocortisone 0.1 mg tablet 0.1 mg PO DAILY #90 tabs 12/22/23 06/27/24 Rx lisinopril 10 mg tablet 10 mg PO DAILY #90 tabs 01/29/24 07/08/24 Rx spironolactone 50 mg tablet See Rx Instructions .Route 05/11/24 07/08/24 Rx .COMPLEX #90 tabs aspirin 81 mg tablet,delayed 81 mg PO DAILY 06/27/24 07/08/24 History release (Adult Aspirin Regimen) multivitamin (Daily Multi-Vitamin 1 tablet PO DAILY 06/27/24 07/08/24 History tablet) atorvastatin 10 mg tablet 10 mg PO DAILY #90 tabs 07/05/24 07/08/24 Rx Allergies Allergy/AdvReac Type Severity Reaction Status Date / Time oxycodone Allergy Mild Rash Verified 07/08/24 08:52 Vital Signs Vital Signs - 24 hr 07/08/24 08:46 Temperature 97.5 F L Pulse Rate 86 Respiratory Rate 20 Blood Pressure 114/75 Pulse Oximetry 100 Oxygen Delivery Room Air Exam Const: General: cooperative and healthy appearing Resp: Effort & Inspection: normal respiratory effort and able to speak in complete sentences Auscultation: clear to auscultation bilaterally Cardio: Rate: regular rate Rhythm: regular rhythm GI: Inspection: normal to inspection GI Palp: No No hepatosplenomegaly present Auscultation: normal bowel sounds Rectal Exam: deferred Skin: General skin exam: normal color Psych: Appearance: grossly normal Mental Status: mental status grossly normal Assessment and Plan Assessment and plan (1) Family history of colorectal cancer: Code(s): Z80.0 - Family history of malignant neoplasm of digestive organs Status: Acute Assessment and Plan: The patient is deemed a good candidate for the procedure. Consent signed. Will proceed.
[2024-07-08 10:24] VITALS: BP 106/60; PULSE 71; RESP 12; O2SAT 100
[2024-07-08 10:34] VITALS: BP 106/64; PULSE 71; RESP 11; O2SAT 100
[2024-07-08 10:44] VITALS: BP 117/66; PULSE 67; RESP 19; O2SAT 100
== END 2024-07-08 10:53 | disposition home or self-care (01) ==
PROVIDERS: PCP Family Medicine Adolescent Medicine; Referring Provider Internal Medicine Gastroenterology; Visit Provider Internal Medicine Gastroenterology
PROC: 0DJD8ZZ Inspection of Lower Intestinal Tract, Via Natural or Artificial Opening Endoscopic (ICD-10-PCS; CPT 45378; principal; 2024-07-08 10:00)
DX: Z12.11 Encounter for screening for malignant neoplasm of colon (principal); K57.30 Diverticulosis of large intestine without perforation or abscess without bleeding; I10 Essential (primary) hypertension; M85.30 Osteitis condensans, unspecified site; R55 Syncope and collapse; E66.9 Obesity, unspecified; Z68.29 Body mass index [BMI] 29.0-29.9, adult; Z79.82 Long term (current) use of aspirin; Z98.890 Other specified postprocedural states; Z98.1 Arthrodesis status; Z85.6 Personal history of leukemia; Z86.0100 Personal history of colon polyps, unspecified; Z80.0 Family history of malignant neoplasm of digestive organs; Z82.49 Family history of ischemic heart disease and other diseases of the circulatory system
CPT/HCPCS: G0105; J2003; J2704; J7120